=== PATIENT | female | born 1955 | race Caucasian/White ===

== ENCOUNTER 2021-12-05 06:36 | Emergency (ER) | payer OTHER, SELFPAY ==
--- NOTE | ~2021-12-05 | CT_ITS ---
EXAM: Noncontrast CT scan of the head and cervical spine. INDICATION: Headache. Possible fall. EtOH. COMPARISON: None TECHNIQUE: Axial slices were obtained from skull base to vertex and displayed. This was followed by helical, multislice, multidetector axial images from the occiput to the upper thorax. Coronal and sagittal reformats of the cervical spine in addition to coronal reformats of the head were obtained at the technologist workstation. Today's examination is limited secondary to motion artifact. DLP: 296 mGy-cm FINDINGS: HEAD: There is no evidence of acute intracranial hemorrhage or territorial infarction. No abnormal mass effect or midline shift is appreciated. Kathleen-white differentiation is well preserved. No extra-axial fluid collections. The ventricular system and cortical sulci are prominent, consistent with age-appropriate volume loss. Mild cerebellar volume loss is also appreciated. There are areas of low density in the periventricular and subcortical white matter, most consistent with sequelae of microvascular ischemic change. Mild soft tissue fullness centered superior to the right orbit likely represents a tiny hematoma. Clinical correlation recommended. No underlying osseous abnormality. There is mild to moderate calcifications of the cavernous internal carotid arteries. The visualized paranasal sinuses and mastoid air cells are well aerated. SPINE: There is straightening of the normal cervical lordosis. Alignment is otherwise unremarkable. Patient is status post posterior fusion of C1 on C2. There is no evidence of hardware failure. There is evidence of an old C2 fracture. Cervical vertebral body heights are maintained. Moderate narrowing of the C3/C4, C5/C6, C6/C7 and C7/T1 disc space heights. There are prominent osteophytes throughout the mid and lower cervical spine. Diffuse bilateral facet hypertrophy visualized lung apices are well aerated. CT/CT cervical spine wo con IMPRESSION: 1. Mild soft tissue fullness centered superior to the right orbit likely represents a tiny hematoma. Clinical correlation recommended. 2. No acute intracranial pathology. 3. Degenerative and old post traumatic and postsurgical changes of the cervical spine. No CT evidence for acute cervical spine fracture. This CT examination was performed using dose optimization techniques as appropriate, variously including the following: *Automated exposure control *Adjustment of mA and/or kV according to patient size (this includes techniques or standardized protocols for targeted exams where dose is matched to indication/reason for exam; i.e. extremities or head) *Use of iterative reconstruction technique
[2021-12-05 06:42] VITALS: BP 140/80; BP 145/86; PULSE 104; PULSE 99; RESP 16; TEMP 36.8; O2SAT 96; BMI 43.4
--- NOTE | 2021-12-05 06:55 | ED_ITS ---
HPI - Alcohol General Chief Complaint: ETOH/Substance Use Stated Complaint: ETOH/Nauseous Time Seen by Provider: 12/05/21 06:47 Source: patient Mode of arrival: EMS Limitations: other (alcohol intoxication) History of Present Illness HPI narrative: of note patient has given registration 2 different birthday and names at this point so she has different accounts with different birthday years and different addressess complaint: alcohol intoxication (headache) Last drink: Hours (ago) Chronic alcohol use: Yes Previous visits for alcohol intoxication: Yes Recent trauma: No Associated symptoms: other (reports nausea vomiting x 4, headache but cannot state when and reports she did not fall ) Treatments prior to arrival: none Related Data Allergies Allergy/AdvReac Type Severity Reaction Status Date / Time No Known Allergies Allergy Verified 12/05/21 06:51 Review of Systems Verdana 4l Review of Systems: Verdana 4d ROS unable to be obtained Verdana 4d due to poor historian, difficult to follow ETOH abuse. Verdana 4d [facility] Past Medical History Medical History Alcoholism Depression Diabetes HTN (hypertension) Social History Social History (Updated 12/05/21 @ 06:56 by Tri Dale DO) Alcohol intake: current Patient Tobacco Use Status: Current everyday Tobacco user Use of substances other than those prescribed or required for medical reasons: No Advance Directives: No Advance Directives Information Provided: No Physical Exam Verdana 4l Vital Signs: Verdana 4d Verdana 4d Vital Signs: Verdana 4d Verdana 4Bd Last Vital Signs Verdana 4d Assistant Housekeeping Manager New 4d Assistant Housekeeping Manager New 4d Temp 98.2 F 12/05/21 11:05 Assistant Housekeeping Manager New 4d Pulse 95 12/05/21 11:05 Assistant Housekeeping Manager New 4d Resp 18 12/05/21 11:05 BP 121/67 12/05/21 11:05 Pulse Ox 97 12/05/21 11:05 BMI result Body Mass Index 43.4 Appearance: Alert. Oriented X2 ETOH odor, agitated, mild acute distress. Intermittently yelling out. Eyes: Pupils equal, round and reactive to light. ENT: Pharynx normal. Old scar R frontal bone Neck: Normal inspection. Neck supple. CVS: Normal heart rate and rhythm. Pulses normal. Respiratory: No respiratory distress. Breath sounds normal. Abdomen: Soft and nontender. Skin: Skin warm and dry. yellowish skin color. Normal skin turgor. Extremities: No lower extremity edema. No calf ttp Neuro: Oriented X 2. No motor deficit. No sensory deficit. Course Course Course Narrative: no acute findings, hydrated, given magnesium thiamine will observe until more clinically sober then DC home - seen for same under other accounts several times tolerating PO attempting to find ride home eating and drinking in ED - no signs of hypoglycemia. BS 92 MDM - Alcohol MDM Narrative Medical decision making narrative: 66 yo female with hx of DM, HTN, alcohol abuse here with reports of agitation, supposed atraumatic headache of unknown duration, n/v, she has given registration 3 different birthdays at this time. I do not see head trauma but she is a terrible historian and based off old account she has been seen for head injury in the past. At this time labs, CT head/cspine ordered. IVF and zofran, BP stable no neuro deficits. Very difficult to get a history from. Lab Data Result diagrams: 12/05/21 07:28 12/05/21 07:28 Labs: Lab Results 12/05/21 12/05/21 12/05/21 Range/Units 07:06 07:28 07:28 WBC 10.3 (4.8-10.8) X10*3/uL RBC 3.98 L (4.20-5.50) X10*6/uL Hgb 13.6 (12.0-16.0) g/dl Hct 39.2 (37.0-47.0) % MCV 98.5 H (80.0-98.0) fL MCH 34.2 H (27.0-33.0) pg MCHC 34.7 (31.0-35.0) g/dl RDW 13.3 (11.0-16.0) % Plt Count 228 (160-400) X10*3/uL MPV 9.4 (9.4-12.3) fL Immature Gran % (Auto) 0.4 (0.0-0.4) % Neut % (Auto) 77.7 H (45-73) % Lymph % (Auto) 16.1 L (20-40) % Harnett % (Auto) 5.2 (2-11) % Eos % (Auto) 0.3 (0-4) % Baso % (Auto) 0.3 (0-2) % Lymph # (Auto) 1.7 (1.2-4.9) X10*3/uL [place]ett # (Auto) 0.5 (0.1-1.2) X10*3/uL Eos # (Auto) 0.0 (0.0-0.4) X10*3/uL Baso # (Auto) 0.0 (0.0-0.2) X10*3/uL Abs Immat Gran (auto) 0.04 H (0.00-0.03) X10*3/uL Absolute Neuts (auto) 8.0 (2.0-8.3) x10*3/uL Absolute Nucleated RBC 0.000 (0.0-0.012) X10*3/uL Nucleated RBC % (auto) 0.0 (0.0-0.2) /100WBC PT (9.9-13.0) SEC INR (0.9-1.1) Sodium 146 H (135-145) mmol/L Potassium 3.8 (3.3-5.1) mmol/L Chloride 106 (96-108) mmol/L Carbon Dioxide 22 (22-29) mmol/L Anion Gap 22 H (12-20) BUN 9 (9-16) mg/dL Creatinine 0.63 (0.5-1.4) mg/dL Estim Creat Clear Calc 110.8 Estimated GFR > 60 POC Glucose 89 (60-115) mg/dL Random Glucose 92 (60-115) mg/dL Calcium 9.2 (8.4-10.2) mg/dL Magnesium 1.5 L (1.6-2.6) mg/dL Total Bilirubin 0.7 (0.0-1.0) mg/dL Direct Bilirubin 0.4 (0.0-0.5) mg/dL AST 21 (5-31) U/L ALT 13 (0-31) U/L Alkaline Phosphatase 76 (39-117) U/L Ammonia (13-55) umol/L Total Protein 6.8 (6.5-8.0) g/dL Albumin 4.0 (3.5-5.0) g/dL Ethyl Alcohol mg/dL COVID-19 (YEFRI) (Negative) COVID-19 Clin Com 02/04/22 02/04/22 02/04/22 Range/Units 07:28 07:28 07:28 WBC (4.8-10.8) X10*3/uL RBC (4.20-5.50) X10*6/uL Hgb (12.0-16.0) g/dl Hct (37.0-47.0) % MCV (80.0-98.0) fL MCH (27.0-33.0) pg MCHC (31.0-35.0) g/dl RDW (11.0-16.0) % Plt Count (160-400) X10*3/uL MPV (9.4-12.3) fL Immature Gran % (Auto) (0.0-0.4) % Neut % (Auto) (45-73) % Lymph % (Auto) (20-40) % Harnett % (Auto) (2-11) % Eos % (Auto) (0-4) % Baso % (Auto) (0-2) % Lymph # (Auto) (1.2-4.9) X10*3/uL [place]ett # (Auto) (0.1-1.2) X10*3/uL Eos # (Auto) (0.0-0.4) X10*3/uL Baso # (Auto) (0.0-0.2) X10*3/uL Abs Immat Gran (auto) (0.00-0.03) X10*3/uL Absolute Neuts (auto) (2.0-8.3) x10*3/uL Absolute Nucleated RBC (0.0-0.012) X10*3/uL Nucleated RBC % (auto) (0.0-0.2) /100WBC PT 11.4 (9.9-13.0) SEC INR 1.0 (0.9-1.1) Sodium (135-145) mmol/L Potassium (3.3-5.1) mmol/L Chloride (96-108) mmol/L Carbon Dioxide (22-29) mmol/L Anion Gap (12-20) BUN (9-16) mg/dL Creatinine (0.5-1.4) mg/dL Estim Creat Clear Calc Estimated GFR POC Glucose (60-115) mg/dL Random Glucose (60-115) mg/dL Calcium (8.4-10.2) mg/dL Magnesium (1.6-2.6) mg/dL Total Bilirubin (0.0-1.0) mg/dL Direct Bilirubin (0.0-0.5) mg/dL AST (5-31) U/L ALT (0-31) U/L Alkaline Phosphatase (39-117) U/L Ammonia 25 (13-55) umol/L Total Protein (6.5-8.0) g/dL Albumin (3.5-5.0) g/dL Ethyl Alcohol mg/dL COVID-19 ([facility]EFRI) Negative (Negative) COVID-19 Clin Com See Note 12/05/21 Range/Units 07:28 WBC (4.8-10.8) X10*3/uL RBC (4.20-5.50) X10*6/uL Hgb (12.0-16.0) g/dl Hct (37.0-47.0) % MCV (80.0-98.0) fL MCH (27.0-33.0) pg MCHC (31.0-35.0) g/dl RDW (11.0-16.0) % Plt Count (160-400) X10*3/uL MPV (9.4-12.3) fL Immature Gran % (Auto) (0.0-0.4) % Neut % (Auto) (45-73) % Lymph % (Auto) (20-40) % [place] % (Auto) (2-11) % Eos % (Auto) (0-4) % Baso % (Auto) (0-2) % Lymph # (Auto) (1.2-4.9) X10*3/uL [place] # (Auto) (0.1-1.2) X10*3/uL Eos # (Auto) (0.0-0.4) X10*3/uL Baso # (Auto) (0.0-0.2) X10*3/uL Abs Immat Gran (auto) (0.00-0.03) X10*3/uL Absolute Neuts (auto) (2.0-8.3) x10*3/uL Absolute Nucleated RBC (0.0-0.012) X10*3/uL Nucleated RBC % (auto) (0.0-0.2) /100WBC PT (9.9-13.0) SEC INR (0.9-1.1) Sodium (135-145) mmol/L Potassium (3.3-5.1) mmol/L Chloride (96-108) mmol/L Carbon Dioxide (22-29) mmol/L Anion Gap (12-20) BUN (9-16) mg/dL Creatinine (0.5-1.4) mg/dL Estim Creat Clear Calc Estimated GFR POC Glucose (60-115) mg/dL Random Glucose (60-115) mg/dL Calcium (8.4-10.2) mg/dL Magnesium (1.6-2.6) mg/dL Total Bilirubin (0.0-1.0) mg/dL Direct Bilirubin (0.0-0.5) mg/dL AST (5-31) U/L ALT (0-31) U/L Alkaline Phosphatase (39-117) U/L Ammonia (13-55) umol/L Total Protein (6.5-8.0) g/dL Albumin (3.5-5.0) g/dL Ethyl Alcohol 239 mg/dL COVID-19 ([facility]EFRI) (Negative) COVID-19 Clin Com Discharge Plan Discharge Clinical Impression: Hypomagnesemia Alcoholic intoxication Qualifiers: Complication of substance-induced condition: uncomplicated Qualified Code(s): F10.920 - Alcohol use, unspecified with intoxication, uncomplicated Patient Disposition: Home, Self-Care Instructions: Alcohol Intoxication (ED), Hypomagnesemia (ED) Additional Instructions: return to ED for any worsening symptoms or concerns Interventions: ED Discharge Assessment Last Done: 12/05/21 11:50 Discharge Date/Time: 12/05/21 11:56 Print Language: Latvian
[2021-12-05 07:11] LABS: Glucose, Whole Blood 89 mg/dL (60-115)
[2021-12-05 07:31] VITALS: BP 119/71; PULSE 84; RESP 18; O2SAT 96
[2021-12-05 07:33] LABS: MANUAL DIFF FLAG NO
--- NOTE | 2021-12-05 07:34 | PC.NURSE ---
Pt alert. no active vomiting. no sign of head strike, open skin. pt able to state needs. denies blood in emisis. noneuro deficits noted. moist mm, abd soft non tender.
[2021-12-05 07:35] LABS: Basophils Percent Auto 0.3 % (0-2); Eosinophils Percent Auto 0.3 % (0-4); Hematocrit 39.2 % (37.0-47.0); Hemoglobin 13.6 g/dl (12.0-16.0); Imm Gran Abs Auto 0.04 X10*3/uL (0.00-0.03); Imm Gran Pct Auto 0.4 % (0.0-0.4); Lymphocytes Absolute Auto 1.7 X10*3/uL (1.2-4.9); Lymphocytes Percent Auto 16.1 % (20-40); Mean Corpuscular HGB Conc 34.7 g/dl (31.0-35.0); Mean Corpuscular Hemoglobin 34.2 pg (27.0-33.0); Mean Corpuscular Volume 98.5 fL (80.0-98.0); Mean Platelet Volume 9.4 fL (9.4-12.3); Monocytes Absolute Auto 0.5 X10*3/uL (0.1-1.2); Monocytes Percent Auto 5.2 % (2-11); Neutrophils Percent Auto 77.7 % (45-73); Platelet Count 228 X10*3/uL (160-400); Red Blood Count 3.98 X10*6/uL (4.20-5.50); Red Cell Distribution Width 13.3 % (11.0-16.0); White Blood Count 10.3 X10*3/uL (4.8-10.8)
[2021-12-05] MEDS: 0.9 % Sodium Chloride 1,000 ML 999 ML IVCONT (07:39)
[2021-12-05] MEDS: ondansetron HCL 4 MG/2 ML VIAL IVPUSH (07:39)
[2021-12-05] MEDS: Dextrose 50 % 25 GM/50 ML SYRINGE IVPUSH (07:39)
[2021-12-05 07:46] LABS: Prothrombin Time 11.4 SEC (9.9-13.0)
[2021-12-05 07:52] LABS: Ammonia 25 umol/L (13-55)
[2021-12-05 07:53] LABS: COVID-19 Test Negative (Negative); IDNOW Serial# 9DD0AD1C
[2021-12-05 07:56] LABS: Ethanol 239 mg/dL
[2021-12-05 08:04] LABS: Alanine Aminotransferase 13 U/L (0-31); Alkaline Phosphatase 76 U/L (39-117); Anion Gap 22 (12-20); Aspartate Amino Transferase 21 U/L (5-31); Bilirubin Direct 0.4 mg/dL (0.0-0.5); Bilirubin Total 0.7 mg/dL (0.0-1.0); Blood Urea Nitrogen 9 mg/dL (9-16); Calcium 9.2 mg/dL (8.4-10.2); Carbon Dioxide 22 mmol/L (22-29); Chloride 106 mmol/L (96-108); Creatinine Clr Calc Pharmacy 110.8; Estimated Glomerular Filt Rate > 60; Glucose Random 92 mg/dL (60-115); Magnesium 1.5 mg/dL (1.6-2.6); Potassium 3.8 mmol/L (3.3-5.1); Sodium 146 mmol/L (135-145); Total Protein 6.8 g/dL (6.5-8.0)
[2021-12-05] MEDS: Magnesium Sulfate/H2O 2 GM/50 ML PIGGYBACK IV (09:27)
[2021-12-05] MEDS: Thiamine HCL 100 MG in 0.9 % Sodium Chloride 100 ML 202 MG IV (09:29)
[2021-12-05 11:05] VITALS: BP 121/67; PULSE 95; RESP 18; TEMP 36.8; O2SAT 97
== END 2021-12-05 11:56 | disposition home or self-care (01) ==
PROVIDERS: Emergency Provider Emergency Medicine
DX: F10.220 Alcohol dependence with intoxication, uncomplicated (principal); Y90.7 Blood alcohol level of 200-239 mg/100 ml; E83.42 Hypomagnesemia; R51.9 Headache, unspecified; R45.1 Restlessness and agitation; Z20.822 Contact with and (suspected) exposure to COVID-19; E11.9 Type 2 diabetes mellitus without complications; I10 Essential (primary) hypertension; F17.200 Nicotine dependence, unspecified, uncomplicated
CPT/HCPCS: 36415; 70450; 72125; 80048; 80076; 82077; 82140; 82947; 83735; 85025; 85610; 87635; 96361; 96365; 96366; 96375; 99284; 99285; J2405; J3411; J3475

== ENCOUNTER 2022-03-20 00:28 | Emergency (ER) | payer OTHER, SELFPAY ==
[2022-03-20] VITALS (7 sets, daily range): BP systolic 90–134; BP diastolic 52–79; PULSE 80–104; RESP 14–19; TEMP 36.4–36.9; O2SAT 94–99; BMI 22.8
--- NOTE | ~2022-03-20 | CT_ITS ---
EXAMINATION: CT ABDOMEN AND PELVIS WITHOUT CONTRAST CLINICAL INFORMATION: Flank pain. History of kidney stone. COMPARISON: None TECHNIQUE: Multidetector volumetric imaging was performed from the superior aspect of the liver through the pubic symphysis. Sagittal and coronal reformatted images were obtained on the technologist's workstation. This CT examination was performed using dose optimization techniques as appropriate, variously including the following: *Automated exposure control *Adjustment of mA and/or kV according to patient size (this includes techniques or standardized protocols for targeted exams where dose is matched to indication/reason for exam; i.e. extremities or head) *Use of iterative reconstruction technique DLP: 375 mGy-cm FINDINGS: LUNG BASES: The visualized lung bases are unremarkable. LIVER, GALLBLADDER, AND BILIARY TREE: The liver is normal in size and shape with decreased attenuation. No focal hepatic lesion or biliary ductal dilatation is present. The gallbladder is unremarkable with no evidence of radiopaque gallstones, gallbladder wall thickening, or obvious pericholecystic inflammatory changes. PANCREAS: Unremarkable. SPLEEN: Unremarkable. ADRENAL GLANDS: Unremarkable. KIDNEYS AND URETERS: The kidneys are normal in size, shape, and attenuation. No hydronephrosis, hydroureter, or calculi seen. No perinephric stranding. There are calcifications which are seen in the pelvis, likely representing phleboliths. These are not definitively along the course of either ureter. BLADDER: Unremarkable. GASTROINTESTINAL TRACT: The stomach is unremarkable. Normal caliber small bowel. No obstruction. No colonic wall thickening or acute inflammation. No free air or free fluid. ABDOMINAL WALL: No significant hernia is appreciated. LYMPH NODES: Normal. VASCULAR: Normal caliber aorta with mild atherosclerotic calcification. PELVIC VISCERA: The uterus and adnexa are unremarkable. OSSEOUS STRUCTURES: No acute or suspicious osseous abnormality. Mild degenerative change throughout the spine. CT/CT abdomen pelvis wo con IMPRESSION: Hepatic steatosis. No hydronephrosis or hydroureter. No definite ureteral calculi, with multiple probable phleboliths in the pelvis. Fleischner guidelines were followed.
--- NOTE | 2022-03-20 01:09 | ED_ITS ---
HPI - General Adult General Chief complaint: Back Pain/Injury Stated complaint: KIDNEY STONES/DIZZINESS Time Seen by Provider: 03/20/22 01:07 Source: patient, EMS and motor vehicle parts interpreter Mode of arrival: EMS Limitations: no limitations History of Present Illness HPI narrative: 66-year-old female came in by ambulance for evaluation of multiple complaints. 1. Right flank pain that started 1 day ago mostly in the right flank pain that is constant, described as severe 10/10, increased with movement, no nausea or vomiting or fever, no dysuria or frequency urination. Patient declined any recent trauma to her back or falling down. 2. Patient also complaining of diabetes. Patient states she is compliant with her medication. 3. Patient with history of depression feeling depressed today patient declined SI or HI or hallucination. 4. Patient also complaining of asthma exacerbation. Related Data Allergies Allergy/AdvReac Type Severity Reaction Status Date / Time No Known Allergies Allergy Verified 12/05/21 06:51 Review of Systems Review of Systems: All other systems are reviewed and are negative Constitutional: Reports as per HPI and Reports no additional constitutional complaints Eyes: Reports as per HPI and Reports no additional eye complaints Reports system reviewed and no additional complaints, except as documented Cardiovascular: Reports as per HPI and Reports no additional cardiovascular complaints Respiratory: Reports as per HPI and Reports no additional respiratory complaints Gastrointestinal: Reports as per HPI and Reports no additional gastrointestinal complaints Genitourinary: Reports no additional female genitourinary complaints Musculoskeletal: Reports no additional musculoskeletal complaints Skin/Breast: Reports system reviewed and no additional complaints, except as docu Psychiatric: Reports no additional psychiatric complaints Endocrine: Reports no additional endocrine complaints Hematologic/Lymphatic: Reports no additional hematologic/lymphatic complaints Allergic/Immunologic: Reports no additional allergic/immunologic complaints Reports system reviewed and no additional complaints, except as documented and Reports Abnormal speech present [facility] Past Medical History Medical History Alcoholism Depression Diabetes HTN (hypertension) Social History Social History Alcohol intake: current Patient Tobacco Use Status: Current everyday Tobacco user Advance Directives: No Physical Exam ED Vital Signs: Vital Signs - 24 hr 03/20/22 00:35 03/20/22 02:58 03/20/22 04:30 Temperature 97.6 F Pulse Rate 94 84 87 Respiratory Rate 16 14 14 Blood Pressure 93/53 L 112/60 90/52 L Pulse Oximetry 97 95 96 03/20/22 06:08 Temperature Pulse Rate 83 Respiratory Rate 14 Blood Pressure 108/59 L Pulse Oximetry 94 BMI result Body Mass Index 22.8 Vital signs have been reviewed as appeared to be correct. Blood pressure normal. Heart rate normal. Respiration rate normal. Temperature normal. Oxygen saturation normal. Appearance: Alert. Oriented X3. No acute distress. Head: Normal external exam. Normocephalic. Atraumatic. No Magana signs noted. No raccoon eyes noted Eyes: PERRLA. EOMI. Conjunctiva and sclera normal. Eyelids normal. ENT: TM's Normal. Pharynx normal. Uvula midline. Moist mucous membranes. No trismus noted. No drooling noted. No muffled voice noted. Neck: Normal inspection. Neck supple. FROM. No adenopathy. Thyroid Normal. No me ningeal signs. No neck mass noted. CVS: Normal heart rate and rhythm. Heart sound normal. No murmurs noted. Pulses normal throughout. Respiratory: No respiratory distress. Painless inspiration. Breath sounds normal. No wheezes/rales/rhonchi noted. Chest nontender. No accessory muscle usage noted or decreased air movement noted. Abdomen: Soft and nontender. Bowel sounds normal in all 4 quadrants. No distention noted. No organomegaly noted. No visible injury noted. Back: No CVA tenderness. Full range of motion noted. Skin: Skin warm and dry. Normal skin color. Normal skin turgor. No ra shes/lesions/lacerations noted. Extremities: No lower extremity edema. Extremities exhibit normal range of motion. Extremities nontender. Neuro: Oriented X 3. Cranial nerve exam: II-XII are grossly intact No motor deficit. No sensory deficit. Reflexes normal. Course Course Course Narrative: Assessment and plan. 66-year-old female came in with multiple complaints, patient has unremarkable CT of the abdomen pelvis and unremarkable labs, patient's blood pressure noted to be on the low side but given patient's small size and being asymptomatic with no obvious reason of patient's blood pressure numbers. Patient is eating and drinking the emergency department. Patient is requesting BHN in evaluation for depression. Observation in the ED started at 06:00 a.m. patient weaning for BHN evaluation. Medical Decision Making Lab Data Lab results reviewed: Yes I reviewed the patient's lab results. Result diagrams: 03/20/22 02:04 03/20/22 02:04 Labs: Lab Results 03/20/22 03/20/22 03/20/22 Range/Units 01:16 02:04 02:04 WBC 4.5 L (4.8-10.8) X10*3/uL RBC 3.75 L (4.20-5.50) X10*6/uL Hgb 12.9 (12.0-16.0) g/dl Hct 37.1 (37.0-47.0) % MCV 98.9 H (80.0-98.0) fL MCH 34.4 H (27.0-33.0) pg MCHC 34.8 (31.0-35.0) g/dl RDW 12.3 (11.0-16.0) % Plt Count 128 L D (160-400) X10*3/uL MPV 9.3 L (9.4-12.3) fL Immature Gran % (Auto) 0.2 (0.0-0.4) % Neut % (Auto) 33.2 L (45-73) % Lymph % (Auto) 53.6 H (20-40) % Hardy % (Auto) 10.1 (2-11) % Eos % (Auto) 2.2 (0-4) % Baso % (Auto) 0.7 (0-2) % Lymph # (Auto) 2.4 (1.2-4.9) X10*3/uL Hardy # (Auto) 0.5 (0.1-1.2) X10*3/uL Eos # (Auto) 0.1 (0.0-0.4) X10*3/uL Baso # (Auto) 0.0 (0.0-0.2) X10*3/uL Abs Immat Gran (auto) 0.01 (0.00-0.03) X10*3/uL Absolute Neuts (auto) 1.5 L (2.0-8.3) x10*3/uL Absolute Nucleated RBC 0.000 (0.0-0.012) X10*3/uL Nucleated RBC % (auto) 0.0 (0.0-0.2) /100WBC Sodium 140 (135-145) mmol/L Potassium 3.3 (3.3-5.1) mmol/L Chloride 108 (96-108) mmol/L Carbon Dioxide 21 L (22-29) mmol/L Anion Gap 14 (12-20) BUN 10 (9-16) mg/dL Creatinine 0.59 (0.5-1.4) mg/dL Estim Creat Clear Calc 68.3 Estimated GFR > 60 Random Glucose 140 H (60-115) mg/dL Calcium 8.7 (8.4-10.2) mg/dL Total Bilirubin 0.3 (0.0-1.0) mg/dL Direct Bilirubin 0.2 (0.0-0.5) mg/dL AST 91 H (5-31) U/L ALT 40 H (0-31) U/L Alkaline Phosphatase 95 D (39-117) U/L Total Protein 6.4 L (6.5-8.0) g/dL Albumin 3.8 (3.5-5.0) g/dL Lipase 32 (8-78) U/L Urine Color YELLOW Urine Appearance CLEAR Urine pH 5.5 (5.0-8.0) Ur Specific [place] <= 1.005 (1.005-1.025) Urine Protein NEG (NEG-TRACE) MG/DL Urine Glucose (UA) NEG (NEG) MG/DL Urine Ketones NEG (NEG) MG/DL Urine Blood TRACE (NEG) Urine Nitrite NEG (NEG) Ur Leukocyte Esterase NEG (NEG) Urine RBC 0-2 (0) /HPF Urine WBC 0-2 (0-4) /HPF Ur Squamous Epith Cells 2+ /LPF Calcium Oxalate Crystal TRACE /LPF Urine Bacteria TRACE /LPF Urine Mucus TRACE /LPF 03/20/22 Range/Units 04:31 WBC (4.8-10.8) X10*3/uL RBC (4.20-5.50) X10*6/uL Hgb (12.0-16.0) g/dl Hct (37.0-47.0) % MCV (80.0-98.0) fL MCH (27.0-33.0) pg MCHC (31.0-35.0) g/dl RDW (11.0-16.0) % Plt Count (160-400) X10*3/uL MPV (9.4-12.3) fL Immature Gran % (Auto) (0.0-0.4) % Neut % (Auto) (45-73) % Lymph % (Auto) (20-40) % Hardy % (Auto) (2-11) % Eos % (Auto) (0-4) % Baso % (Auto) (0-2) % Lymph # (Auto) (1.2-4.9) X10*3/uL Hardy # (Auto) (0.1-1.2) X10*3/uL Eos # (Auto) (0.0-0.4) X10*3/uL Baso # (Auto) (0.0-0.2) X10*3/uL Abs Immat Gran (auto) (0.00-0.03) X10*3/uL Absolute Neuts (auto) (2.0-8.3) x10*3/uL Absolute Nucleated RBC (0.0-0.012) X10*3/uL Nucleated RBC % (auto) (0.0-0.2) /100WBC Sodium (135-145) mmol/L Potassium (3.3-5.1) mmol/L Chloride (96-108) mmol/L Carbon Dioxide (22-29) mmol/L Anion Gap (12-20) BUN (9-16) mg/dL Creatinine (0.5-1.4) mg/dL Estim Creat Clear Calc Estimated GFR Random Glucose (60-115) mg/dL Calcium (8.4-10.2) mg/dL Total Bilirubin (0.0-1.0) mg/dL Direct Bilirubin (0.0-0.5) mg/dL AST (5-31) U/L ALT (0-31) U/L Alkaline Phosphatase (39-117) U/L Total Protein (6.5-8.0) g/dL Albumin (3.5-5.0) g/dL Lipase (8-78) U/L Urine Color STRAW Urine Appearance CLEAR Urine pH 5.5 (5.0-8.0) Ur Specific [place] <= 1.005 (1.005-1.025) Urine Protein NEG (NEG-TRACE) MG/DL Urine Glucose (UA) NEG (NEG) MG/DL Urine Ketones NEG (NEG) MG/DL Urine Blood TRACE (NEG) Urine Nitrite NEG (NEG) Ur Leukocyte Esterase NEG (NEG) Urine RBC 0 (0) /HPF Urine WBC 0-2 (0-4) /HPF Ur Squamous Epith Cells 1+ /LPF Calcium Oxalate Crystal /LPF Urine Bacteria TRACE /LPF Urine Mucus /LPF Imaging Data CT scan - abdomen: Attestation: I personally reviewed and interpreted this imaging study as follows: Radiologist's impression: Hepatic steatosis. No hydronephrosis or hydroureter. No definite ureteral calculi, with multiple probable phleboliths in the pelvis.? ? Discharge Plan Discharge Clinical Impression: Strain of lumbar region, Depression
[2022-03-20 01:27] LABS: Appearance Urine CLEAR; Color Urine YELLOW; Glucose Urine UA NEG (NEG); Leukocyte Esterase Urine NEG (NEG); Nitrite Urine NEG (NEG); PH 5.5 (5.0-8.0); Specific Gravity - Urine <= 1.005 (1.005-1.025); UACC Culture Trigger NO; Urine Blood TRACE (NEG); Urine Ketones NEG (NEG); Urine Protein NEG (NEG-TRACE)
[2022-03-20 01:44] LABS: Bacteria Urine TRACE /LPF; Calcium Oxalate Crystals Urine TRACE /LPF; Mucus Urine TRACE /LPF; RBC Urine 0-2 /HPF (0); Squamous Epithelial Cell Urine 2+ /LPF; WBC Urine 0-2 /HPF (0-4)
[2022-03-20 02:08] LABS: MANUAL DIFF FLAG NO
[2022-03-20 02:09] LABS: Basophils Percent Auto 0.7 % (0-2); Eosinophils Absolute Auto 0.1 X10*3/uL (0.0-0.4); Eosinophils Percent Auto 2.2 % (0-4); Hematocrit 37.1 % (37.0-47.0); Hemoglobin 12.9 g/dl (12.0-16.0); Imm Gran Abs Auto 0.01 X10*3/uL (0.00-0.03); Imm Gran Pct Auto 0.2 % (0.0-0.4); Lymphocytes Absolute Auto 2.4 X10*3/uL (1.2-4.9); Lymphocytes Percent Auto 53.6 % (20-40); Mean Corpuscular HGB Conc 34.8 g/dl (31.0-35.0); Mean Corpuscular Hemoglobin 34.4 pg (27.0-33.0); Mean Corpuscular Volume 98.9 fL (80.0-98.0); Mean Platelet Volume 9.3 fL (9.4-12.3); Monocytes Absolute Auto 0.5 X10*3/uL (0.1-1.2); Monocytes Percent Auto 10.1 % (2-11); Neutrophils Absolute Auto 1.5 x10*3/uL (2.0-8.3); Neutrophils Percent Auto 33.2 % (45-73); Platelet Count 128 X10*3/uL (160-400); Red Blood Count 3.75 X10*6/uL (4.20-5.50); Red Cell Distribution Width 12.3 % (11.0-16.0); White Blood Count 4.5 X10*3/uL (4.8-10.8)
[2022-03-20 02:25] LABS: Alanine Aminotransferase 40 U/L (0-31); Albumin Level 3.8 g/dL (3.5-5.0); Alkaline Phosphatase 95 U/L (39-117); Anion Gap 14 (12-20); Aspartate Amino Transferase 91 U/L (5-31); Bilirubin Direct 0.2 mg/dL (0.0-0.5); Bilirubin Total 0.3 mg/dL (0.0-1.0); Blood Urea Nitrogen 10 mg/dL (9-16); Calcium 8.7 mg/dL (8.4-10.2); Carbon Dioxide 21 mmol/L (22-29); Chloride 108 mmol/L (96-108); Creatinine Clr Calc Pharmacy 68.3; Estimated Glomerular Filt Rate > 60; Glucose Random 140 mg/dL (60-115); Lipase 32 U/L (8-78); Potassium 3.3 mmol/L (3.3-5.1); Sodium 140 mmol/L (135-145); Total Protein 6.4 g/dL (6.5-8.0)
--- NOTE | 2022-03-20 02:25 | PC.NURSE ---
Difficulty getting IV acces after multiple attempts, Pt refusing IV and fluids at this time.
[2022-03-20] MEDS: 0.9 % Sodium Chloride 1,000 ML 999 ML IV (03:53)
[2022-03-20 04:39] LABS: Appearance Urine CLEAR; Color Urine STRAW; Glucose Urine UA NEG (NEG); Leukocyte Esterase Urine NEG (NEG); Nitrite Urine NEG (NEG); PH 5.5 (5.0-8.0); Specific Gravity - Urine <= 1.005 (1.005-1.025); UACC Culture Trigger NO; Urine Blood TRACE (NEG); Urine Ketones NEG (NEG); Urine Protein NEG (NEG-TRACE)
[2022-03-20 05:03] LABS: Bacteria Urine TRACE /LPF; RBC Urine 0 /HPF (0); Squamous Epithelial Cell Urine 1+ /LPF; WBC Urine 0-2 /HPF (0-4)
[2022-03-20] MEDS: ondansetron HCL 4 MG/2 ML VIAL IVPUSH (10:55)
[2022-03-20] MEDS: Ketorolac Tromethamine 30 MG/ML VIAL IVPUSH (10:55)
[2022-03-20 10:56] LABS: Glucose, Whole Blood 97 mg/dL (60-115)
[2022-03-20 14:19] LABS: Glucose, Whole Blood 180 mg/dL (60-115)
--- NOTE | 2022-03-20 16:04 | PC.NURSE ---
patient requesting to leave at this time. patient tolerating PO intake and in no distress. patient declines waiting to speak with BHN. alert and oriented on departure, provided bus pass
== END 2022-03-20 20:35 | disposition left against medical advice (07) ==
PROVIDERS: Emergency Provider Emergency Medicine
DX: S39.012A Strain of muscle, fascia and tendon of lower back, initial encounter (principal); F32.A Depression, unspecified; R10.9 Unspecified abdominal pain; E11.9 Type 2 diabetes mellitus without complications; I10 Essential (primary) hypertension; X58.XXXA Exposure to other specified factors, initial encounter; Y93.9 Activity, unspecified; Y92.9 Unspecified place or not applicable; Y99.9 Unspecified external cause status
CPT/HCPCS: 36415; 74176; 80048; 80076; 81001; 82947; 83690; 85025; 96361; 96374; 96375; 99284; J1885; J2405

== ENCOUNTER 2022-06-04 21:36 | Emergency (ER) | payer OTHER, SELFPAY ==
--- NOTE | ~2022-06-04 | XR_ITS ---
EXAMINATION: XR CHEST CLINICAL INFORMATION: Chest pain COMPARISON: None TECHNIQUE: Frontal view of the chest was obtained. FINDINGS: The lungs are expanded with patchy opacity seen in the both lung bases. Heart size and pulmonary vascularity is normal. No gross bony abnormality seen. XR/XR chest 1V IMPRESSION: Bilateral basilar patchy opacity likely infiltrate and/or atelectasis. The heart size and pulmonary vascularity is normal. There is moderate dextroscoliosis dorsal spine. .
[2022-06-04 21:50] VITALS: PULSE 102; O2SAT 95
[2022-06-04 21:59] LABS: Glucose, Whole Blood 129 mg/dL (60-115)
[2022-06-04 22:13] VITALS: BP 107/62; PULSE 94; RESP 18; TEMP 36.6; O2SAT 94; BMI 21.0
[2022-06-04 22:17] VITALS: O2SAT 95
--- NOTE | 2022-06-04 22:19 | ED.GENADULT ---
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 On discussed with the patient she states that she drank a number of beers today and that she began having chest tightness with difficulty breathing and then developed nausea and vomiting as well as diarrhea. She denies any urinary symptoms, she states she is having some chills but is unsure about any fevers. Related Data Allergies Allergy/AdvReac Type Severity Reaction Status Date / Time No Known Allergies Allergy Verified 12/05/21 06:51 Review of Systems Review of Systems: Pertinent positives and negatives as stated in HPI 10 point review of systems is otherwise negative. [facility]LY [facility] Past Medical History Source: nursing notes reviewed Medical History Alcoholism Depression Diabetes HTN (hypertension) Social History Social History Alcohol intake: current Patient Tobacco Use Status: Current everyday Tobacco user Use of substances other than those prescribed or required for medical reasons: Unknown Advance Directives: No Advance Directives Information Provided: Yes Physical Exam ED Vital Signs: Vital Signs - 24 hr 06/04/22 22:13 06/04/22 22:17 06/05/22 00:00 Temperature 97.8 F Pulse Rate 94 83 Respiratory Rate 18 17 Blood Pressure 107/62 109/66 Pulse Oximetry 94 95 96 Oxygen Delivery Method Room Air Room Air Room Air BMI result Body Mass Index 21.0 VITAL SIGNS: Reviewed. GENERAL: Older, cachectic, in no acute distress. HEAD: Normocephalic/atraumatic EYES: PERRLA, EOMI EARS: Ext canals without abnormality OROPHARYNX: no oral lesions noted, posterior pharynx clear LUNGS: Normal breath sounds. No adventitious sounds or accessory muscle use. SpO2<94> CARDIOVASCULAR: Regular rate and rhythm without noted murmurs, no JVD or lower extremity edema. ABDOMEN: Soft, non-tender, non-distended with bowel sounds. MUSCULOSKELETAL: No tenderness, deformities, or effusions noted on gross inspection. EXTREMITIES: No cyanosis, clubbing or edema. SKIN: Inspection of the skin reveals no rashes NEUROLOGIC: Alert and oriented x 3. Strength and sensation to light touch were grossly intact x 4. Course Course Course Narrative: 66-year-old female with history and clinical presentation consistent with alcohol intoxication and suspect possible alcohol gastritis but will evaluate for cardiopulmonary etiologies though lungs were auscultated and found to be clear. Review of all investigations with identified alcohol intoxication as well as bilateral patchy infiltrates for which patient received initial antibiotics. On re-evaluation patient has had no further nausea or vomiting episodes and this is likely secondary to the alcohol use as well. She will be discharged in stable condition with the remaining course of antibiotics. Medical Decision Making Lab Data Result diagrams: 06/04/22 22:31 06/04/22 22:31 Labs: Lab Results 06/04/22 06/04/22 06/04/22 Range/Units 21:55 22:31 22:31 WBC 4.7 L (4.8-10.8) X10*3/uL RBC 3.34 L (4.20-5.50) X10*6/uL Hgb 12.2 (12.0-16.0) g/dl Hct 34.9 L (37.0-47.0) % MCV 104.5 H (80.0-98.0) fL MCH 36.5 H (27.0-33.0) pg MCHC 35.0 (31.0-35.0) g/dl RDW 12.4 (11.0-16.0) % Plt Count 173 D (160-400) X10*3/uL MPV 9.4 (9.4-12.3) fL Immature Gran % (Auto) 0.2 (0.0-0.4) % Neut % (Auto) 48.7 (45-73) % Lymph % (Auto) 38.7 (20-40) % [place] % (Auto) 9.2 (2-11) % Eos % (Auto) 2.1 (0-4) % Baso % (Auto) 1.1 (0-2) % Lymph # (Auto) 1.8 (1.2-4.9) X10*3/uL [place] # (Auto) 0.4 (0.1-1.2) X10*3/uL Eos # (Auto) 0.1 (0.0-0.4) X10*3/uL Baso # (Auto) 0.1 (0.0-0.2) X10*3/uL Abs Immat Gran (auto) 0.01 (0.00-0.03) X10*3/uL Absolute Neuts (auto) 2.3 (2.0-8.3) x10*3/uL Absolute Nucleated RBC 0.000 (0.0-0.012) X10*3/uL Nucleated RBC % (auto) 0.0 (0.0-0.2) /100WBC Sodium 142 (135-145) mmol/L Potassium 3.4 (3.3-5.1) mmol/L Chloride 108 (96-108) mmol/L Carbon Dioxide 21 L (22-29) mmol/L Anion Gap 16 (12-20) BUN 14 (9-16) mg/dL Creatinine 0.67 (0.5-1.4) mg/dL Estim Creat Clear Calc 66.1 Estimated GFR > 60 POC Glucose 129 H (60-115) mg/dL Random Glucose 118 H (60-115) mg/dL Calcium 9.2 (8.4-10.2) mg/dL Total Bilirubin 0.4 (0.0-1.0) mg/dL AST 107 H (5-31) U/L ALT 37 H (0-31) U/L Alkaline Phosphatase 92 (39-117) U/L Troponin I High Sens (<3.5-17.0) ng/L Total Protein 6.5 (6.5-8.0) g/dL Albumin 3.8 (3.5-5.0) g/dL Lipase 28 (8-78) U/L Ethyl Alcohol 263 mg/dL COVID-19 (YEFRI) (Negative) COVID-19 Clin Com 06/04/22 06/05/22 Range/Units 22:31 00:04 WBC (4.8-10.8) X10*3/uL RBC (4.20-5.50) X10*6/uL Hgb (12.0-16.0) g/dl Hct (37.0-47.0) % MCV (80.0-98.0) fL MCH (27.0-33.0) pg MCHC (31.0-35.0) g/dl RDW (11.0-16.0) % Plt Count (160-400) X10*3/uL MPV (9.4-12.3) fL Immature Gran % (Auto) (0.0-0.4) % Neut % (Auto) (45-73) % Lymph % (Auto) (20-40) % [place] % (Auto) (2-11) % Eos % (Auto) (0-4) % Baso % (Auto) (0-2) % Lymph # (Auto) (1.2-4.9) X10*3/uL [place] # (Auto) (0.1-1.2) X10*3/uL Eos # (Auto) (0.0-0.4) X10*3/uL Baso # (Auto) (0.0-0.2) X10*3/uL Abs Immat Gran (auto) (0.00-0.03) X10*3/uL Absolute Neuts (auto) (2.0-8.3) x10*3/uL Absolute Nucleated RBC (0.0-0.012) X10*3/uL Nucleated RBC % (auto) (0.0-0.2) /100WBC Sodium (135-145) mmol/L Potassium (3.3-5.1) mmol/L Chloride (96-108) mmol/L Carbon Dioxide (22-29) mmol/L Anion Gap (12-20) BUN (9-16) mg/dL Creatinine (0.5-1.4) mg/dL Estim Creat Clear Calc Estimated GFR POC Glucose (60-115) mg/dL Random Glucose (60-115) mg/dL Calcium (8.4-10.2) mg/dL Total Bilirubin (0.0-1.0) mg/dL AST (5-31) U/L ALT (0-31) U/L Alkaline Phosphatase (39-117) U/L Troponin I High Sens < 3.5 (<3.5-17.0) ng/L Total Protein (6.5-8.0) g/dL Albumin (3.5-5.0) g/dL Lipase (8-78) U/L Ethyl Alcohol mg/dL COVID-19 (YEFRI) Negative (Negative) COVID-19 Clin Com See Note Discharge Plan Discharge Clinical Impression: Pneumonia, Alcohol intoxication, Alcohol dependence Patient Disposition: Still a Patient Additional Instructions: 1. Complete the entire course of antibiotics as ordered. 2. Follow-up with your primary care provider for re-evaluation in the next 1-2 days. Return to the ER for worsening symptoms.
[2022-06-04 22:35] LABS: MANUAL DIFF FLAG NO
[2022-06-04 22:37] LABS: Basophils Absolute Auto 0.1 X10*3/uL (0.0-0.2); Basophils Percent Auto 1.1 % (0-2); Eosinophils Absolute Auto 0.1 X10*3/uL (0.0-0.4); Eosinophils Percent Auto 2.1 % (0-4); Hematocrit 34.9 % (37.0-47.0); Hemoglobin 12.2 g/dl (12.0-16.0); Imm Gran Abs Auto 0.01 X10*3/uL (0.00-0.03); Imm Gran Pct Auto 0.2 % (0.0-0.4); Lymphocytes Absolute Auto 1.8 X10*3/uL (1.2-4.9); Lymphocytes Percent Auto 38.7 % (20-40); Mean Corpuscular Hemoglobin 36.5 pg (27.0-33.0); Mean Corpuscular Volume 104.5 fL (80.0-98.0); Mean Platelet Volume 9.4 fL (9.4-12.3); Monocytes Absolute Auto 0.4 X10*3/uL (0.1-1.2); Monocytes Percent Auto 9.2 % (2-11); Neutrophils Absolute Auto 2.3 x10*3/uL (2.0-8.3); Neutrophils Percent Auto 48.7 % (45-73); Platelet Count 173 X10*3/uL (160-400); Red Blood Count 3.34 X10*6/uL (4.20-5.50); Red Cell Distribution Width 12.4 % (11.0-16.0); White Blood Count 4.7 X10*3/uL (4.8-10.8)
[2022-06-04] MEDS: 0.9 % Sodium Chloride 1,000 ML 999 ML IV (22:49)
[2022-06-04 22:53] LABS: Alanine Aminotransferase 37 U/L (0-31); Albumin Level 3.8 g/dL (3.5-5.0); Alkaline Phosphatase 92 U/L (39-117); Anion Gap 16 (12-20); Aspartate Amino Transferase 107 U/L (5-31); Bilirubin Total 0.4 mg/dL (0.0-1.0); Blood Urea Nitrogen 14 mg/dL (9-16); Calcium 9.2 mg/dL (8.4-10.2); Carbon Dioxide 21 mmol/L (22-29); Chloride 108 mmol/L (96-108); Creatinine Clr Calc Pharmacy 66.1; Estimated Glomerular Filt Rate > 60; Glucose Random 118 mg/dL (60-115); Lipase 28 U/L (8-78); Potassium 3.4 mmol/L (3.3-5.1); Sodium 142 mmol/L (135-145); Total Protein 6.5 g/dL (6.5-8.0)
[2022-06-04 22:56] LABS: Troponin-I High Sensitivity < 3.5 ng/L (<3.5-17.0)
[2022-06-04 23:16] LABS: Ethanol 263 mg/dL
[2022-06-05] VITALS: BP 109/66; PULSE 83; RESP 17; O2SAT 96
[2022-06-05 00:24] LABS: COVID-19 Test Negative (Negative)
[2022-06-05] MEDS: Magnesium Hydrox/Alum Hydrox 30 ML ORAL.SUSP PO (01:41)
[2022-06-05] MEDS: Lidocaine HCl Viscous 2 % 15 ML SOLUTION 10 ML MUCOUS MEM (01:41)
[2022-06-05] MEDS: 0.9 % Sodium Chloride 1,000 ML 999 ML IV (01:44)
[2022-06-05 02:20] VITALS: BP 116/69; PULSE 86; RESP 17; O2SAT 97
[2022-06-05 03:44] LABS: Appearance Urine CLEAR; Color Urine STRAW; Glucose Urine UA NEG (NEG); Leukocyte Esterase Urine NEG (NEG); Nitrite Urine NEG (NEG); Specific Gravity - Urine <= 1.005 (1.005-1.025); UACC Culture Trigger NO; Urine Blood TRACE (NEG); Urine Ketones NEG (NEG); Urine Protein NEG (NEG-TRACE)
[2022-06-05 03:53] LABS: RBC Urine 0-2 /HPF (0); Squamous Epithelial Cell Urine 1+ /LPF; WBC Urine 0 /HPF (0-4)
[2022-06-05 04:10] VITALS: BP 128/84; PULSE 80; RESP 18; O2SAT 96
--- NOTE | 2022-06-05 04:42 | PC.NURSE ---
pt sleeping comfortably on stretcher. no respiratory distress. respirations even and unlabored. call obrien within reach. will continue to monitor
== END 2022-06-05 07:01 | disposition still patient (30) ==
PROVIDERS: Student in an Organized Health Care Education/Training Program; Emergency Provider Emergency Medicine Emergency Medical Services
DX: J18.9 Pneumonia, unspecified organism (principal); F10.220 Alcohol dependence with intoxication, uncomplicated; Y90.8 Blood alcohol level of 240 mg/100 ml or more; Z20.822 Contact with and (suspected) exposure to COVID-19; E11.9 Type 2 diabetes mellitus without complications; I10 Essential (primary) hypertension; F17.200 Nicotine dependence, unspecified, uncomplicated
CPT/HCPCS: 36415; 71045; 80053; 81001; 82077; 82947; 83690; 84484; 85025; 87635; 96360; 96361; 99284

== ENCOUNTER 2022-12-18 01:24 | Emergency (ER) | payer MEDICARE, MEDICAID, SELFPAY ==
--- NOTE | ~2022-12-18 | XR_ITS ---
EXAMINATION: XR CHEST CLINICAL INFORMATION: Dyspnea COMPARISON: 06/04/2022 TECHNIQUE: Frontal view of the chest was obtained. FINDINGS: Cardiac leads overlie the chest. The lungs are well expanded. There is no focal consolidation, edema, or effusion. No pneumothorax. The cardiomediastinal silhouette is within normal limits. No acute osseous abnormality. Chronic deformity of the proximal right humerus. XR/XR chest 1V IMPRESSION: No acute pulmonary disease.
[2022-12-18 01:27] VITALS: BP 116/78; PULSE 110
--- NOTE | 2022-12-18 01:31 | ED.SOB ---
HPI - SOB/Dyspnea General Chief Complaint: Dyspnea Stated Complaint: SOB Time Seen by Provider: 12/18/22 01:27 Source: patient Mode of arrival: EMS Limitations: no limitations History of Present Illness HPI Narrative: Patient history of asthma been drinking tonight comes here for increased cough wheezing nausea vomiting vomited about 5 times with bilateral rib pain with increased bleeding patient feels very anxious Related Data Previous Rx's Medication Instructions Recorded albuterol sulfate 90 mcg/actuation 2 puff inhalation Q4-6H PRN 12/18/22 aerosol inhaler (ProAir HFA) shortness of breath or wheezing #8.5 grams prednisone 20 mg tablet 40 mg PO DAILY #10 tabs 12/18/22 Allergies Allergy/AdvReac Type Severity Reaction Status Date / Time No Known Allergies Allergy Verified 12/05/21 06:51 Review of Systems Review of Systems: Yes all other systems are reviewed and are negative [facility] Past Medical History Medical History Alcoholism Depression Diabetes HTN (hypertension) Social History Social History Alcohol intake: current Patient Tobacco Use Status: Current everyday Tobacco user Advance Directives: No Advance Directives Information Provided: Yes Physical Exam Vital Signs: Vital Signs: Last Vital Signs Temp 97.1 F 12/18/22 04:53 Pulse 89 12/18/22 04:53 Resp 18 12/18/22 04:53 BP 104/60 12/18/22 04:53 Pulse Ox 95 12/18/22 04:53 O2 Del Method 12/18/22 04:53 BMI result Body Mass Index 23.4 Appearance: Alert. Oriented X3. No acute distress. etoh++ Eyes: No pallor or icterus ENT: Pharynx normal. Oral Mucosa moist Neck: Normal inspection. Neck supple. CVS: Normal heart rate and rhythm. Pulses normal. Respiratory: No respiratory distress. Equal air entry bilateral, bilateral prolonged expiration Abdomen: Soft and nontender. Bowel sounds are present, no mass palpable, no CVA tenderness Skin: Skin warm and dry. Normal skin color. Normal skin turgor. Extremities: No lower extremity edema. No calf tenderness Neuro: Oriented X 3. No motor deficit. No sensory deficit.No cerebellar signs , cranial nerves II-XII intact Medications Administered Discontinued Medications Generic Name Dose Route Start Last Admin Trade Name Freq PRN Reason Stop Dose Admin Albuterol Sulfate 2.5 mg/ 0 mg 12/18/22 02:55 12/18/22 03:05 Ipratropium [place] 0.5 mg INHALE 12/18/22 02:56 1 each ONCE ONE Administration Sodium Chloride 1,000 mls @ 999 mls/hr 12/18/22 02:40 12/18/22 04:56 Ns IV 12/18/22 03:40 Infused .Q1H1M ONE Infusion Methylprednisolone Sodium Succinate 125 mg 12/18/22 02:56 12/18/22 03:01 Methylprednisolone Sod Succ 125 Mg/2 Ml Vial IVPUSH 12/18/22 02:57 125 mg ONCE ONE Administration Ondansetron HCl 4 mg 12/18/22 02:40 12/18/22 02:57 Ondansetron Hcl 4 Mg/2 Ml Vial IVPUSH 12/18/22 02:41 4 mg ONCE ONE Administration Medical Decision Making Medical Decision Making [facility] Narrative: Patient with asthma with alcohol use lungs with prolonged expiration chest x-ray negative saturating 95% on room air at this time will discharge patient home advised to stop drinking alcohol patient will go with her family Differential Diagnosis Asthma/pneumonia/pneumothorax/alcohol intoxication/rib fx Lab Data [facility] Lab Attestation statement: I reviewed the patient's lab results. 12/18/22 01:52 12/18/22 01:52 Labs: Lab Results 12/18/22 12/18/22 12/18/22 Range/Units 01:52 01:52 01:52 WBC 4.8 (4.8-10.8) X10*3/uL RBC 3.47 L (4.20-5.50) X10*6/uL Hgb 12.1 (12.0-16.0) g/dl Hct 35.2 L (37.0-47.0) % MCV 101.4 H (80.0-98.0) fL MCH 34.9 H (27.0-33.0) pg MCHC 34.4 (31.0-35.0) g/dl RDW 13.1 (11.0-16.0) % Plt Count 129 L D (160-400) X10*3/uL MPV 9.6 (9.4-12.3) fL Immature Gran % (Auto) 0.2 (0.0-0.4) % Neut % (Auto) 31.1 L (45-73) % Lymph % (Auto) 53.1 H (20-40) % [place] % (Auto) 11.6 H (2-11) % Eos % (Auto) 2.9 (0-4) % Baso % (Auto) 1.1 (0-2) % Lymph # (Auto) 2.5 (1.2-4.9) X10*3/uL [place] # (Auto) 0.6 (0.1-1.2) X10*3/uL Eos # (Auto) 0.1 (0.0-0.4) X10*3/uL Baso # (Auto) 0.1 (0.0-0.2) X10*3/uL Abs Immat Gran (auto) 0.01 (0.00-0.03) X10*3/uL Absolute Neuts (auto) 1.5 L (2.0-8.3) x10*3/uL Absolute Nucleated RBC 0.000 (0.0-0.012) X10*3/uL Nucleated RBC % (auto) 0.0 (0.0-0.2) /100WBC D-Dimer High Sensitivty NG/ML Sodium 144 (135-145) mmol/L Potassium 4.1 D (3.3-5.1) mmol/L Chloride 111 H (96-108) mmol/L Carbon Dioxide 20 L (22-29) mmol/L Anion Gap 17 (12-20) BUN 11 (9-16) mg/dL Creatinine 0.59 (0.5-1.4) mg/dL Estim Creat Clear Calc 67.3 Estimated GFR > 60 Random Glucose 111 (60-115) mg/dL Calcium 8.8 (8.4-10.2) mg/dL Magnesium (1.6-2.6) mg/dL Total Bilirubin 0.5 (0.0-1.0) mg/dL Direct Bilirubin 0.2 (0.0-0.5) mg/dL AST 80 H (5-31) U/L ALT 32 H (0-31) U/L Alkaline Phosphatase 116 (39-117) U/L Troponin I High Sens < 3.5 (<3.5-17.0) ng/L Total Protein 6.6 (6.5-8.0) g/dL Albumin 3.5 (3.5-5.0) g/dL Lipase 30 (8-78) U/L Ethyl Alcohol mg/dL Influenza Type A (PCR) (Negative) Influenza Type B (PCR) (Negative) RSV RNA Qual (PCR) (Negative) SARS-CoV-2 RNA (RT-PCR) (Negative) 12/18/22 12/18/22 12/18/22 Range/Units 01:52 01:52 01:52 WBC (4.8-10.8) X10*3/uL RBC (4.20-5.50) X10*6/uL Hgb (12.0-16.0) g/dl Hct (37.0-47.0) % MCV (80.0-98.0) fL MCH (27.0-33.0) pg MCHC (31.0-35.0) g/dl RDW (11.0-16.0) % Plt Count (160-400) X10*3/uL MPV (9.4-12.3) fL Immature Gran % (Auto) (0.0-0.4) % Neut % (Auto) (45-73) % Lymph % (Auto) (20-40) % [place] % (Auto) (2-11) % Eos % (Auto) (0-4) % Baso % (Auto) (0-2) % Lymph # (Auto) (1.2-4.9) X10*3/uL [place] # (Auto) (0.1-1.2) X10*3/uL Eos # (Auto) (0.0-0.4) X10*3/uL Baso # (Auto) (0.0-0.2) X10*3/uL Abs Immat Gran (auto) (0.00-0.03) X10*3/uL Absolute Neuts (auto) (2.0-8.3) x10*3/uL Absolute Nucleated RBC (0.0-0.012) X10*3/uL Nucleated RBC % (auto) (0.0-0.2) /100WBC D-Dimer High Sensitivty 246 NG/ML Sodium (135-145) mmol/L Potassium (3.3-5.1) mmol/L Chloride (96-108) mmol/L Carbon Dioxide (22-29) mmol/L Anion Gap (12-20) BUN (9-16) mg/dL Creatinine (0.5-1.4) mg/dL Estim Creat Clear Calc Estimated GFR Random Glucose (60-115) mg/dL Calcium (8.4-10.2) mg/dL Magnesium 1.8 (1.6-2.6) mg/dL Total Bilirubin (0.0-1.0) mg/dL Direct Bilirubin (0.0-0.5) mg/dL AST (5-31) U/L ALT (0-31) U/L Alkaline Phosphatase (39-117) U/L Troponin I High Sens (<3.5-17.0) ng/L Total Protein (6.5-8.0) g/dL Albumin (3.5-5.0) g/dL Lipase (8-78) U/L Ethyl Alcohol 329 H* mg/dL Influenza Type A (PCR) NEGATIVE (Negative) Influenza Type B (PCR) NEGATIVE (Negative) RSV RNA Qual (PCR) NEGATIVE (Negative) SARS-CoV-2 RNA (RT-PCR) NEGATIVE (Negative) Discharge Plan Discharge Clinical Impression: Asthma with exacerbation, Alcohol intoxication Patient Disposition: Home, Self-Care Instructions: Asthma (ED), Alcohol Intoxication (ED) Additional Instructions: Stop drinking alcohol Use inhaler and prednisone as prescribed Follow-up with PCP if not better Prescriptions: New prednisone 20 mg tablet 40 mg PO DAILY Qty: 10 0RF albuterol sulfate [ProAir HFA] 90 mcg/actuation HFA aerosol inhaler 2 puff inhalation Q4-6H PRN (Reason: shortness of breath or wheezing) Qty: 8.5 0RF
[2022-12-18 01:32] VITALS: BP 105/71; PULSE 105; RESP 24; O2SAT 96; BMI 23.4
--- NOTE | 2022-12-18 01:38 | ECG_ITS ---
Test Reason : SOB Blood Pressure : / mmHG Vent. Rate : 085 BPM Atrial Rate : 085 BPM P-R Int : 156 ms QRS Dur : 070 ms QT Int : 376 ms P-R-T Axes : 057 042 045 degrees QTc Int : 447 ms Normal sinus rhythm Normal ECG When compared with ECG of 16-OCT-2021 15:52, No significant change was found Referred By: Miguel Weldon Electronically Signed By:Steven Vogel
[2022-12-18 01:56] LABS: MANUAL DIFF FLAG NO
[2022-12-18 01:57] VITALS: TEMP 36.6
[2022-12-18 01:58] LABS: Basophils Absolute Auto 0.1 X10*3/uL (0.0-0.2); Basophils Percent Auto 1.1 % (0-2); Eosinophils Absolute Auto 0.1 X10*3/uL (0.0-0.4); Eosinophils Percent Auto 2.9 % (0-4); Hematocrit 35.2 % (37.0-47.0); Hemoglobin 12.1 g/dl (12.0-16.0); Imm Gran Abs Auto 0.01 X10*3/uL (0.00-0.03); Imm Gran Pct Auto 0.2 % (0.0-0.4); Lymphocytes Absolute Auto 2.5 X10*3/uL (1.2-4.9); Lymphocytes Percent Auto 53.1 % (20-40); Mean Corpuscular HGB Conc 34.4 g/dl (31.0-35.0); Mean Corpuscular Hemoglobin 34.9 pg (27.0-33.0); Mean Corpuscular Volume 101.4 fL (80.0-98.0); Mean Platelet Volume 9.6 fL (9.4-12.3); Monocytes Absolute Auto 0.6 X10*3/uL (0.1-1.2); Monocytes Percent Auto 11.6 % (2-11); Neutrophils Absolute Auto 1.5 x10*3/uL (2.0-8.3); Neutrophils Percent Auto 31.1 % (45-73); Platelet Count 129 X10*3/uL (160-400); Red Blood Count 3.47 X10*6/uL (4.20-5.50); Red Cell Distribution Width 13.1 % (11.0-16.0); White Blood Count 4.8 X10*3/uL (4.8-10.8)
[2022-12-18 02:05] LABS: D Dimer High Sensitivity 246 NG/ML
[2022-12-18 02:19] LABS: Troponin-I High Sensitivity < 3.5 ng/L (<3.5-17.0)
[2022-12-18 02:25] LABS: Alanine Aminotransferase 32 U/L (0-31); Albumin Level 3.5 g/dL (3.5-5.0); Alkaline Phosphatase 116 U/L (39-117); Anion Gap 17 (12-20); Aspartate Amino Transferase 80 U/L (5-31); Bilirubin Direct 0.2 mg/dL (0.0-0.5); Bilirubin Total 0.5 mg/dL (0.0-1.0); Blood Urea Nitrogen 11 mg/dL (9-16); Calcium 8.8 mg/dL (8.4-10.2); Carbon Dioxide 20 mmol/L (22-29); Chloride 111 mmol/L (96-108); Creatinine Clr Calc Pharmacy 67.3; Estimated Glomerular Filt Rate > 60; Ethanol 329 mg/dL; Glucose Random 111 mg/dL (60-115); Lipase 30 U/L (8-78); Magnesium 1.8 mg/dL (1.6-2.6); Potassium 4.1 mmol/L (3.3-5.1); Sodium 144 mmol/L (135-145); Total Protein 6.6 g/dL (6.5-8.0)
[2022-12-18 02:34] LABS: Influenza A PCR NEGATIVE (Negative); Influenza B PCR NEGATIVE (Negative); Resp Syncy Virus RNA Qual PCR NEGATIVE (Negative); SARS COV2 PCR INHOUSE NEGATIVE (Negative)
[2022-12-18] MEDS: ondansetron HCL 4 MG/2 ML VIAL IVPUSH (02:57)
[2022-12-18] MEDS: 0.9 % Sodium Chloride 1,000 ML 999 ML IV (02:59)
[2022-12-18] MEDS: methylPREDNISolone Sod Succ 125 MG/2 ML VIAL IVPUSH (03:01)
[2022-12-18 03:08] VITALS: PULSE 84; RESP 18; O2SAT 94
--- NOTE | 2022-12-18 04:01 | PC.NURSE ---
patient provided with pb & jelly sandwich and cranberry juice. ate half sandwich and all of juice tolerated well no vomiting
[2022-12-18 04:53] VITALS: BP 104/60; PULSE 89; RESP 18; TEMP 36.2; O2SAT 95
--- NOTE | 2022-12-18 06:00 | PC.NURSE ---
patient sleeping comfortably. on pvc monitor. no apparent distress. call obrien within reach, will CTM
--- NOTE | 2022-12-18 06:51 | PC.NURSE ---
patients son called @[phone] to let him know patient is ready for discharge and needs a ride home. son says he will come fern picker patient
== END 2022-12-18 08:37 | disposition home or self-care (01) ==
PROVIDERS: Emergency Provider Internal Medicine; PCP Internal Medicine
DX: J45.901 Unspecified asthma with (acute) exacerbation (principal); F10.220 Alcohol dependence with intoxication, uncomplicated; Y90.8 Blood alcohol level of 240 mg/100 ml or more; Z20.822 Contact with and (suspected) exposure to COVID-19; Z20.828 Contact with and (suspected) exposure to other viral communicable diseases; E11.9 Type 2 diabetes mellitus without complications; I10 Essential (primary) hypertension
CPT/HCPCS: 0241U; 36415; 71045; 80048; 80076; 82077; 83690; 83735; 84484; 85025; 85379; 93005; 94640; 96361; 96374; 96375; 99284; 99285; J2405; J2930

== ENCOUNTER 2022-12-23 16:11 | Emergency (ER) | payer MEDICARE, MEDICAID, SELFPAY ==
--- NOTE | ~2022-12-23 | XR_ITS ---
EXAMINATION: XR CHEST CLINICAL INFORMATION: Shortness of breath COMPARISON: Chest x-ray 12/18/2022 TECHNIQUE: Frontal view of the chest was obtained. FINDINGS: Minimal patchy left basilar opacity likely mild atelectasis. No airspace consolidation. No pleural effusion or pneumothorax. Unchanged cardiomediastinal silhouette. No evidence pulmonary edema. Multiple chronic bilateral rib fracture deformities and right proximal humerus fracture deformity. No acute osseous injury identified. XR/XR chest 1V IMPRESSION: Mild left basilar atelectasis. No acute pulmonary process.
[2022-12-23 16:17] VITALS: BP 121/79; BP 132/71; PULSE 105; PULSE 106; RESP 16; O2SAT 97; O2SAT 99; BMI 22.6
[2022-12-23 16:20] VITALS: BP 124/79; PULSE 102; RESP 17; TEMP 36.6; O2SAT 97
--- NOTE | 2022-12-23 16:25 | ED.GENADULT ---
HPI - General Adult General Chief complaint: Dyspnea Stated complaint: SOB,ETOH Time Seen by Provider: 12/23/22 16:18 Source: patient and EMS Mode of arrival: EMS Limitations: other (suspected alcohol intoxicaiton ) History of Present Illness HPI narrative: 67-year-old female with history of asthma, diabetes, depression, hypertension presenting via EMS for dry cough, shortness of breath, vomiting, diarrhea, fatigue, malaise X 1 week. Patient is intoxicated upon arrival Patient states that she drink half a pt of vodka and 2 beers today her last drink being at 14:00, No hx of alcohol w/drawl seizures.. Patient has abdominal pain but denies blood in stool or vomit. Patient is alert and oriented able to answer my questions. Patient denies chest pain, fever, chills, fatigue, malaise, falls, trauma, headache. Denies fall. Denies SI and HI. GCS 15 Related Data Previous Rx's Medication Instructions Recorded albuterol sulfate 90 mcg/actuation 2 puff inhalation Q4-6H PRN 12/18/22 aerosol inhaler (ProAir HFA) shortness of breath or wheezing #8.5 grams prednisone 20 mg tablet 40 mg PO DAILY #10 tabs 12/18/22 albuterol sulfate 90 mcg/actuation 2 inh inhalation Q4-6H PRN 12/23/22 breath activated powder inhaler shortness of breath or wheezing #1 ea azithromycin 250 mg tablet See Rx Instructions PO .COMPLEX #6 12/23/22 tabs prednisone 20 mg tablet 20 mg PO DAILY 5 days #5 tabs 12/23/22 Allergies Allergy/AdvReac Type Severity Reaction Status Date / Time No Known Allergies Allergy Verified 12/05/21 06:51 Review of Systems Review of Systems: Constitutional : No Weight loss, No Fever, No Chills, + Fatigue, + Malaise ENT/Mouth : No sore throat, No Rhinorrhea Eyes: No Eye Pain, No Swelling, No Redness Cardiovascular : No Chest Pain, + SOB, No Dyspnea on Exertion, No Orthopnea, No Edema, No Palpitations Respiratory : + Cough, No Sputum, No Wheezing Gastrointestinal : + Nausea, +Vomiting, + Diarrhea, No Constipation, + abdominal Pain, No Hematochezia, No Melena Genitourinary : No Dysuria, No Urinary Frequency, No Hematuria, Musculoskeletal : No joint pain, No Myalgias, No Joint Swelling Skin : No Skin Lesions, No rash Neuro : No Weakness, No Numbness, No Dizziness, No Headache Psych : No Anxiety/Panic, No Depression All other systems reviewed and are negative Yes all other systems are reviewed and are negative [facility] Past Medical History Attestation statement: The following information was validated with the patient. Source: old records reviewed and nursing notes reviewed Medical History Alcoholism Depression Diabetes HTN (hypertension) Social History Social History Alcohol intake: current Alcohol intake frequency: 3 or more drinks per day Alcohol type: hard liquor Patient Tobacco Use Status: Current everyday Tobacco user Use of substances other than those prescribed or required for medical reasons: No Advance Directives: No Advance Directives Information Provided: No Physical Exam ED Vital Signs: Vital Signs - 24 hr 12/23/22 16:17 12/23/22 16:20 12/23/22 18:14 Temperature 97.8 F Pulse Rate 105 H 102 H 102 H Respiratory Rate 16 17 18 Blood Pressure 121/79 124/79 Pulse Oximetry 97 97 Oxygen Delivery Method Room Air Room Air 12/23/22 20:00 12/23/22 21:24 Temperature 98.3 F 97.5 F Pulse Rate 69 109 H Respiratory Rate 15 20 Blood Pressure 127/79 161/84 H Pulse Oximetry 96 95 Oxygen Delivery Method Room Air BMI result Body Mass Index 22.6 vss Appearance: Alert.? Oriented X3.? No acute distress.?+ slightly anxious Head: Normocephalic, atraumatic, no step-offs or deformities Eyes: Pupils equal, round and reactive to light.? Neck: Normal inspection.? Neck supple.? CVS: + Rapid heart rate, Normal heart rhythm.? Pulses normal.? Respiratory: No respiratory distress.? Breath sounds normal.? Abdomen: Soft. Non tender. Normoactive bowel sounds throughout Skin: Skin warm and dry.? Normal skin color.? Normal skin turgor.? Extremities: No lower extremity edema.? No calf ttp. 5/5 strength to bilateral upper and lower extremities Neuro: Oriented X 3.? No motor deficit.? No sensory deficit. CN 2-12 intact GCS: 15 Course Reevaluation(s) Reevaluation #1: CBC still pending. Chemistry with elevated potassium 5.2 will give Lokelma. No other acute electrolyte abnormalities requiring intervention. Patient is noted to have elevated transaminases likely secondary to alcohol abuse. Troponin negative, EKG pending. Time: 18:04 Reevaluation #2: Patient continues to express shortness of breath and is now telling me that she is having pain with discomfort underneath both ribs when she breathes. Will obtain D-dimer to rule out PE although again I suspect this is not likely. This is likely an upper respiratory infection. Time: 18:02 Reevaluation #3: CBC showing leukopenia likely secondary to viral illness. Patient also noted to have elevated MCV. UA without infection. Urine toxicology negative. Patient's ethanol level 338 consistent with alcohol intoxication. Patient's COVID influenza are negative. Chest x-ray with mild left basilar atelectasis. No acute pulmonary process seen. No consolidation. Troponin negative, EKG nonischemic unlikely ACS. Patient's D-dimer negative unlikely PE. Patient's upper respiratory symptoms likely secondary to viral illness. Patient reports improvement after albuterol treatment. Repeat BMP pending to look at patient's potassium. Patient does not want detox. Patient resting. At this time patient will be placed into observation to allow more time for patient to become clinically sober. At time observation was started patient common cooperative no acute distress. Vital signs are stable patient's oxygen saturation fluctuating between 95-97% on room air. No signs of labored breathing. Time: 22:31 Medications Administered Discontinued Medications Generic Name Dose Route Start Last Admin Trade Name Jaimeq PRN Reason Stop Dose Admin Albuterol Sulfate 5 mg 12/23/22 18:05 12/23/22 18:14 Albuterol Sulfate 2.5 Mg/0.5 Ml Vial.Neb INHALE 12/23/22 18:06 5 mg ONCE ONE Administration Sodium Chloride 1,000 mls @ 999 mls/hr 12/23/22 18:15 12/23/22 18:26 Ns IV 12/23/22 19:15 999 mls/hr .Q1H1M ZBIGNIEW Administration Sodium Zirconium Cyclosilicate 10 gm 12/23/22 18:04 12/23/22 18:26 Sodium Zirconium Cyclosilicate 10 Gm Powd.Pack PO 02/22/23 18:05 10 gm ONCE ONE Administration Medical Decision Making Medical Decision Making MDM Narrative: 67-year-old female presenting for acute intoxication X 1 day, abdominal pain, vomiting, nausea, shortness of breath, dry cough X 1 week. Rapid regular rythem likley sinus tach on PE. 4PEP Score: 0 GCS 15 Tachycardia likely secondary to intoxication and agitation unlikely from PE. Likely intoxication versus his asthma exacerbation versus viral illness.. Less likely PE, pneumothorax, pneumonia Plan: Labs, imaging Differential Diagnosis Differential Diagnoses: The differential diagnosis associated with the presentation includes Likely intoxication versus his asthma exacerbation versus viral illness.. Less likely PE, pneumothorax, pneumonia Admission/Observation Consideration of admission/observation: Escalation of care including admission/observation considered Admission unlikely Lab Data [facility] Lab Attestation statement: I reviewed the patient's lab results. 12/23/22 17:03 12/23/22 17:03 Labs: Lab Results 12/23/22 12/23/22 12/23/22 Range/Units 17:03 17:03 17:03 WBC 1.8 L (4.8-10.8) X10*3/uL RBC 3.83 L (4.20-5.50) X10*6/uL Hgb 13.4 (12.0-16.0) g/dl Hct 39.6 (37.0-47.0) % MCV 103.4 H (80.0-98.0) fL MCH 35.0 H (27.0-33.0) pg MCHC 33.8 (31.0-35.0) g/dl RDW 13.2 (11.0-16.0) % Plt Count 134 L (160-400) X10*3/uL MPV 10.1 (9.4-12.3) fL Immature Gran % (Auto) 0.5 H (0.0-0.4) % Neut % (Auto) 70.4 (45-73) % Lymph % (Auto) 25.8 (20-40) % [place] % (Auto) 2.2 (2-11) % Eos % (Auto) 0.0 (0-4) % Baso % (Auto) 1.1 (0-2) % Lymph # (Auto) 0.5 L (1.2-4.9) X10*3/uL [place] # (Auto) 0.0 L (0.1-1.2) X10*3/uL Eos # (Auto) 0.0 (0.0-0.4) X10*3/uL Baso # (Auto) 0.0 (0.0-0.2) X10*3/uL Abs Immat Gran (auto) 0.01 (0.00-0.03) X10*3/uL Absolute Neuts (auto) 1.3 L (2.0-8.3) x10*3/uL Absolute Nucleated RBC 0.000 (0.0-0.012) X10*3/uL Nucleated RBC % (auto) 0.0 (0.0-0.2) /100WBC Smear Tech's Comments VERIFIED D-Dimer High Sensitivty NG/ML Sodium 143 (135-145) mmol/L Potassium 5.2 H D (3.3-5.1) mmol/L Chloride 113 H (96-108) mmol/L Carbon Dioxide 20 L (22-29) mmol/L Anion Gap 15 (12-20) BUN 11 (9-16) mg/dL Creatinine 0.66 (0.5-1.4) mg/dL Estim Creat Clear Calc 63.2 Estimated GFR > 60 Random Glucose 207 H (60-115) mg/dL Calcium 8.9 (8.4-10.2) mg/dL Magnesium 2.0 (1.6-2.6) mg/dL Total Bilirubin 0.6 (0.0-1.0) mg/dL AST 119 H (5-31) U/L ALT 40 H (0-31) U/L Alkaline Phosphatase 121 H (39-117) U/L Troponin I High Sens < 3.5 (<3.5-17.0) ng/L B-Natriuretic Peptide (<100) pg/mL Total Protein 7.1 (6.5-8.0) g/dL Albumin 3.8 (3.5-5.0) g/dL Lipase 17 (8-78) U/L Urine Color Urine Appearance Urine pH (5.0-9.0) Ur Specific [place] (1.005-1.025) Urine Protein (Neg-Trace) mg/dL Urine Glucose (UA) (Negative) mg/dL Urine Ketones (Negative) mg/dL Urine Blood (Negative) Urine Nitrite (Negative) Ur Leukocyte Esterase (Negative) Urine Opiates Screen (Not Detect) Urine Fentanyl Screen (Not Detect) Ur Barbiturates Screen (Not Detect) Ur Phencyclidine Scrn (Not Detect) Ur Amphetamines Screen (Not Detect) U Benzodiazepines Scrn (Not Detect) Urine Cocaine Screen (Not Detect) U Marijuana (THC) Screen (Not Detect) Ethyl Alcohol 338 H* mg/dL COVID-19 (YEFRI) (Negative) COVID-19 Clin Com Influenza Type A (FABY) (Negative) Influenza Type B (FABY) (Negative) Influenza A & B Note 12/23/22 12/23/22 12/23/22 Range/Units 17:03 17:06 17:06 WBC (4.8-10.8) X10*3/uL RBC (4.20-5.50) X10*6/uL Hgb (12.0-16.0) g/dl Hct (37.0-47.0) % MCV (80.0-98.0) fL MCH (27.0-33.0) pg MCHC (31.0-35.0) g/dl RDW (11.0-16.0) % Plt Count (160-400) X10*3/uL MPV (9.4-12.3) fL Immature Gran % (Auto) (0.0-0.4) % Neut % (Auto) (45-73) % Lymph % (Auto) (20-40) % [place] % (Auto) (2-11) % Eos % (Auto) (0-4) % Baso % (Auto) (0-2) % Lymph # (Auto) (1.2-4.9) X10*3/uL [place] # (Auto) (0.1-1.2) X10*3/uL Eos # (Auto) (0.0-0.4) X10*3/uL Baso # (Auto) (0.0-0.2) X10*3/uL Abs Immat Gran (auto) (0.00-0.03) X10*3/uL Absolute Neuts (auto) (2.0-8.3) x10*3/uL Absolute Nucleated RBC (0.0-0.012) X10*3/uL Nucleated RBC % (auto) (0.0-0.2) /100WBC Smear Tech's Comments D-Dimer High Sensitivty NG/ML Sodium (135-145) mmol/L Potassium (3.3-5.1) mmol/L Chloride (96-108) mmol/L Carbon Dioxide (22-29) mmol/L Anion Gap (12-20) BUN (9-16) mg/dL Creatinine (0.5-1.4) mg/dL Estim Creat Clear Calc Estimated GFR Random Glucose (60-115) mg/dL Calcium (8.4-10.2) mg/dL Magnesium (1.6-2.6) mg/dL Total Bilirubin (0.0-1.0) mg/dL AST (5-31) U/L ALT (0-31) U/L Alkaline Phosphatase (39-117) U/L Troponin I High Sens (<3.5-17.0) ng/L B-Natriuretic Peptide < 10 (<100) pg/mL Total Protein (6.5-8.0) g/dL Albumin (3.5-5.0) g/dL Lipase (8-78) U/L Urine Color Urine Appearance Urine pH (5.0-9.0) Ur Specific [place] (1.005-1.025) Urine Protein (Neg-Trace) mg/dL Urine Glucose (UA) (Negative) mg/dL Urine Ketones (Negative) mg/dL Urine Blood (Negative) Urine Nitrite (Negative) Ur Leukocyte Esterase (Negative) Urine Opiates Screen (Not Detect) Urine Fentanyl Screen (Not Detect) Ur Barbiturates Screen (Not Detect) Ur Phencyclidine Scrn (Not Detect) Ur Amphetamines Screen (Not Detect) U Benzodiazepines Scrn (Not Detect) Urine Cocaine Screen (Not Detect) U Marijuana (THC) Screen (Not Detect) Ethyl Alcohol mg/dL COVID-19 (YEFRI) Negative (Negative) COVID-19 Clin Com See Note Influenza Type A (FABY) Negative (Negative) Influenza Type B (FABY) Negative (Negative) Influenza A & B Note See Note 12/23/22 12/23/22 12/23/22 Range/Units 17:06 17:06 18:27 WBC (4.8-10.8) X10*3/uL RBC (4.20-5.50) X10*6/uL Hgb (12.0-16.0) g/dl Hct (37.0-47.0) % MCV (80.0-98.0) fL MCH (27.0-33.0) pg MCHC (31.0-35.0) g/dl RDW (11.0-16.0) % Plt Count (160-400) X10*3/uL MPV (9.4-12.3) fL Immature Gran % (Auto) (0.0-0.4) % Neut % (Auto) (45-73) % Lymph % (Auto) (20-40) % [place] % (Auto) (2-11) % Eos % (Auto) (0-4) % Baso % (Auto) (0-2) % Lymph # (Auto) (1.2-4.9) X10*3/uL [place] # (Auto) (0.1-1.2) X10*3/uL Eos # (Auto) (0.0-0.4) X10*3/uL Baso # (Auto) (0.0-0.2) X10*3/uL Abs Immat Gran (auto) (0.00-0.03) X10*3/uL Absolute Neuts (auto) (2.0-8.3) x10*3/uL Absolute Nucleated RBC (0.0-0.012) X10*3/uL Nucleated RBC % (auto) (0.0-0.2) /100WBC Smear Tech's Comments D-Dimer High Sensitivty < 150 NG/ML Sodium (135-145) mmol/L Potassium (3.3-5.1) mmol/L Chloride (96-108) mmol/L Carbon Dioxide (22-29) mmol/L Anion Gap (12-20) BUN (9-16) mg/dL Creatinine (0.5-1.4) mg/dL Estim Creat Clear Calc Estimated GFR Random Glucose (60-115) mg/dL Calcium (8.4-10.2) mg/dL Magnesium (1.6-2.6) mg/dL Total Bilirubin (0.0-1.0) mg/dL AST (5-31) U/L ALT (0-31) U/L Alkaline Phosphatase (39-117) U/L Troponin I High Sens (<3.5-17.0) ng/L B-Natriuretic Peptide (<100) pg/mL Total Protein (6.5-8.0) g/dL Albumin (3.5-5.0) g/dL Lipase (8-78) U/L Urine Color Yellow Urine Appearance Clear Urine pH 6.5 (5.0-9.0) Ur Specific [place] <= 1.005 (1.005-1.025) Urine Protein Negative (Neg-Trace) mg/dL Urine Glucose (UA) Negative (Negative) mg/dL Urine Ketones Negative (Negative) mg/dL Urine Blood Negative (Negative) Urine Nitrite Negative (Negative) Ur Leukocyte Esterase Negative (Negative) Urine Opiates Screen Not Detected (Not Detect) Urine Fentanyl Screen Not Detected (Not Detect) Ur Barbiturates Screen Not Detected (Not Detect) Ur Phencyclidine Scrn Not Detected (Not Detect) Ur Amphetamines Screen Not Detected (Not Detect) U Benzodiazepines Scrn Not Detected (Not Detect) Urine Cocaine Screen Not Detected (Not Detect) U Marijuana (THC) Screen Not Detected (Not Detect) Ethyl Alcohol mg/dL COVID-19 (YEFRI) (Negative) COVID-19 Clin Com Influenza Type A (FABY) (Negative) Influenza Type B (FABY) (Negative) Influenza A & B Note Independent Interpretation I performed an independent interpretation of an: EKG (sinus tach no ischemia ) and Plain X-Ray (negative ) Radiology Impression Discussion of test interpretation with radiology: I have reviewed the radiologist's reading. External Record Review External record reviewed: Inpatient record, Office record, Outpatient record, Prior outpatient labs, Prior outpatient radiology, Primary care record and Outside ED record Core Measures AMI core measures followed: Yes Measure exclusions: not indicated Critical Care Time Critical Care Time Critical Care Time: No Discharge Plan Discharge Clinical Impression: Alcohol intoxication, URI (upper respiratory infection), Acute hyperkalemia Patient Disposition: Still a Patient Instructions: Upper Respiratory Infection (ED), Hyperkalemia (ED), Alcohol Intoxication (ED), Abuse of Alcohol (ED), Alcohol Withdrawal (ED) Additional Instructions: Take your medications as prescribed. If you were prescribed antibiotics today, it is important that you take your medication to their entirety, do not skip any doses, do not finish them early. Follow-up with your primary care provider this week. Return to the emergency department with new or worsening symptoms. Such as fevers, chills, chest pain, shortness of breath, nausea, vomiting, dizziness, headache, vision changes, lethargy, suicidal or homicidal ideation In case of emergency call 911 Your potassium was noted to be slightly elevated while in the emergency department today. Your potassium was 5.2, your given a medication called Diamond to help bring that potassium down to normal range. Please follow-up with your primary care provider within the next 2-3 days for repeat laboratory studies to ensure that this electrolyte disturbance has improved and remains within normal limits. Offer do detox however he refused. I have sent steroids, albuterol inhaler to her pharmacy as well as azithromycin which is an antibiotic for suspected upper respiratory infection. Prescriptions: New azithromycin 250 mg tablet See Rx Instructions .ROUTE .COMPLEX Qty: 6 0RF Rx Instructions: For 250 mg dose pack: take 500 mg today (day 1), then 250 mg for 4 days (days 2-5) prednisone 20 mg tablet 20 mg PO DAILY 5 Days Qty: 5 0RF albuterol sulfate 90 mcg/actuation aerosol powdr breath activated 2 inh inhalation Q4-6H PRN (Reason: shortness of breath or wheezing) Qty: 1 0RF No Action prednisone 20 mg tablet 40 mg PO DAILY Qty: 10 0RF albuterol sulfate [ProAir HFA] 90 mcg/actuation HFA aerosol inhaler 2 puff inhalation Q4-6H PRN (Reason: shortness of breath or wheezing) Qty: 8.5 0RF
[2022-12-23 17:28] LABS: COVID-19 Test Negative (Negative); IDNOW Serial# 16C4AD1C
[2022-12-23 17:31] LABS: Basophils Percent Auto 1.1 % (0-2); Hematocrit 39.6 % (37.0-47.0); Hemoglobin 13.4 g/dl (12.0-16.0); Imm Gran Abs Auto 0.01 X10*3/uL (0.00-0.03); Imm Gran Pct Auto 0.5 % (0.0-0.4); Lymphocytes Absolute Auto 0.5 X10*3/uL (1.2-4.9); Lymphocytes Percent Auto 25.8 % (20-40); MANUAL DIFF FLAG SCAN; Mean Corpuscular HGB Conc 33.8 g/dl (31.0-35.0); Mean Corpuscular Volume 103.4 fL (80.0-98.0); Mean Platelet Volume 10.1 fL (9.4-12.3); Monocytes Percent Auto 2.2 % (2-11); Neutrophils Absolute Auto 1.3 x10*3/uL (2.0-8.3); Neutrophils Percent Auto 70.4 % (45-73); Platelet Count 134 X10*3/uL (160-400); Red Blood Count 3.83 X10*6/uL (4.20-5.50); Red Cell Distribution Width 13.2 % (11.0-16.0); SCAN SMEAR FLAG 1
[2022-12-23 17:32] LABS: IDNOW Serial# BCCEAD1C; Influenza A Negative (Negative); Influenza B2 Negative (Negative)
[2022-12-23 17:34] LABS: Amphetamine Screen Urine Not Detected (Not Detect); Appearance Urine Clear; Barbiturates, Urine Not Detected (Not Detect); Benzodiazepines Screen Urine Not Detected (Not Detect); Cannabinoid Screen Urine Not Detected (Not Detect); Cocaine Screen Urine Not Detected (Not Detect); Color Urine Yellow; Fentanyl, urine Not Detected (Not Detect); Glucose Urine UA Negative (Negative); Leukocyte Esterase Urine Negative (Negative); Nitrite Urine Negative (Negative); Opiate Screen Urine Not Detected (Not Detect); PH 6.5 (5.0-9.0); Phencyclidine Screen Urine Not Detected (Not Detect); Specific Gravity - Urine <= 1.005 (1.005-1.025); Urine Blood Negative (Negative); Urine Ketones Negative (Negative); Urine Protein Negative (Neg-Trace)
[2022-12-23 17:41] LABS: White Blood Count 1.8 X10*3/uL (4.8-10.8)
[2022-12-23 17:45] LABS: Alanine Aminotransferase 40 U/L (0-31); Albumin Level 3.8 g/dL (3.5-5.0); Alkaline Phosphatase 121 U/L (39-117); Anion Gap 15 (12-20); Aspartate Amino Transferase 119 U/L (5-31); Bilirubin Total 0.6 mg/dL (0.0-1.0); Blood Urea Nitrogen 11 mg/dL (9-16); Calcium 8.9 mg/dL (8.4-10.2); Carbon Dioxide 20 mmol/L (22-29); Chloride 113 mmol/L (96-108); Creatinine Clr Calc Pharmacy 63.2; Estimated Glomerular Filt Rate > 60; Ethanol 338 mg/dL; Glucose Random 207 mg/dL (60-115); Lipase 17 U/L (8-78); Potassium 5.2 mmol/L (3.3-5.1); Sodium 143 mmol/L (135-145); Total Protein 7.1 g/dL (6.5-8.0); Troponin-I High Sensitivity < 3.5 ng/L (<3.5-17.0)
--- NOTE | 2022-12-23 18:04 | ECG_ITS ---
Test Reason : sob Blood Pressure : / mmHG Vent. Rate : 101 BPM Atrial Rate : 101 BPM P-R Int : 148 ms QRS Dur : 072 ms QT Int : 360 ms P-R-T Axes : 054 054 062 degrees QTc Int : 466 ms Artifact in tracing Sinus tachycardia Otherwise normal ECG When compared with ECG of 18-DEC-2022 01:54, No significant change was found Referred By: Ellie Nevarez Electronically Signed By:YOLANDA AC
[2022-12-23 18:07] LABS: SLIDE REVIEW VERIFIED
[2022-12-23 18:14] VITALS: PULSE 102; RESP 18; O2SAT 96
[2022-12-23] MEDS: Albuterol Sulfate 2.5 MG/0.5 ML VIAL.NEB 5 MG INHALE (18:14)
[2022-12-23] MEDS: 0.9 % Sodium Chloride 1,000 ML 999 ML IV (18:26)
[2022-12-23] MEDS: Sodium Zirconium Cyclosilicate 10 GM POWD.PACK PO (18:26)
[2022-12-23 18:54] LABS: D Dimer High Sensitivity < 150 NG/ML
[2022-12-23 19:11] LABS: B Type Natriuretic Peptide < 10 pg/mL (<100)
[2022-12-23 20:00] VITALS: BP 127/79; PULSE 69; RESP 15; TEMP 36.8; O2SAT 96
[2022-12-23 21:24] VITALS: BP 161/84; PULSE 109; RESP 20; TEMP 36.4; O2SAT 95
--- NOTE | 2022-12-23 22:54 | MHC.EDTECH ---
pt up to use bedside commode and vitals were taken pt baccto bed
[2022-12-23 23:10] LABS: Anion Gap 13 (12-20); Blood Urea Nitrogen 11 mg/dL (9-16); Calcium 8.2 mg/dL (8.4-10.2); Carbon Dioxide 17 mmol/L (22-29); Chloride 117 mmol/L (96-108); Creatinine Clr Calc Pharmacy 73.2; Estimated Glomerular Filt Rate > 60; Glucose Random 151 mg/dL (60-115); Potassium 3.6 mmol/L (3.3-5.1); Sodium 143 mmol/L (135-145)
[2022-12-24 05:21] VITALS: BP 156/87; PULSE 81; RESP 16; TEMP 37.2; O2SAT 95
--- NOTE | 2022-12-24 05:24 | MHC.EDTECH ---
pt used commode and back to bed, vitals were taken, pt vomited 50cc , she said she was eating pudding and string cheese that was sitting on her table from earlier before my shift, i put all the old food from her table into the trash gave her saltines if she waned to eat something nurse aware
[2022-12-24 07:28] VITALS: BP 150/84; PULSE 89; RESP 17; TEMP 36.7; O2SAT 99
== END 2022-12-24 07:56 | disposition home or self-care (01) ==
PROVIDERS: Physician Assistant; Emergency Provider Student in an Organized Health Care Education/Training Program
DX: F10.129 Alcohol abuse with intoxication, unspecified (principal); Y90.8 Blood alcohol level of 240 mg/100 ml or more; J06.9 Acute upper respiratory infection, unspecified; E87.5 Hyperkalemia; R06.02 Shortness of breath; I10 Essential (primary) hypertension; F17.200 Nicotine dependence, unspecified, uncomplicated; Z20.822 Contact with and (suspected) exposure to COVID-19; Z20.828 Contact with and (suspected) exposure to other viral communicable diseases; Z79.899 Other long term (current) drug therapy; Z71.6 Tobacco abuse counseling
CPT/HCPCS: 36415; 71045; 80048; 80053; 80307; 81003; 82077; 83690; 83735; 83880; 84484; 85025; 85379; 87502; 87635; 93005; 94640; 96360; 96361; 99285

== ENCOUNTER 2023-02-16 09:19 | Emergency (ER) | payer MEDICARE, MEDICAID, SELFPAY ==
--- NOTE | 2023-02-16 09:21 | ED.FALL ---
HPI - Fall General Chief Complaint: General Medical Stated Complaint: R RIB PAIN S/P FALL DOWN STAIRS 5 DAYS AGO PER EMS Time Seen by Provider: 02/16/23 09:21 Source: patient and EMS Mode of arrival: EMS Limitations: no limitations History of Present Illness HPI Narrative: 67 yo female with history of asthma, DM, depression, HTN, and ETOH abuse presents to the ER from home via EMS for evaluation of right sided rib pain s/p fall going up stairs 5 days ago. She reportedly was seen at [facility] yesterday and diagnosed with 2 rib fractures. She was given medicine but does not know the name. She states the pain is severe and she is unable to tolerate it at home. She states it is worse with movement and deep breaths. Pain is located under her right axillary area next to her right breast. She is not on blood thinners. Denies LOC at the time of the fall. No other injuries. complaint: fall Onset (ago): day(s) (5) Fall from: standing Fall witnessed: no Place fall occurred: home Loss of consciousness: none Prolonged down time: no Symptoms prior to fall: none Location of injury: chest Severity: severe Quality: sharp Associated symptoms (after fall): denies Related Data Previous Rx's Medication Instructions Recorded albuterol sulfate 90 mcg/actuation 2 puff inhalation Q4-6H PRN 12/18/22 aerosol inhaler (ProAir HFA) shortness of breath or wheezing #8.5 grams prednisone 20 mg tablet 40 mg PO DAILY #10 tabs 12/18/22 albuterol sulfate 90 mcg/actuation 2 inh inhalation Q4-6H PRN 12/23/22 breath activated powder inhaler shortness of breath or wheezing #1 ea azithromycin 250 mg tablet See Rx Instructions PO .COMPLEX #6 12/23/22 tabs prednisone 20 mg tablet 20 mg PO DAILY 5 days #5 tabs 12/23/22 Allergies Allergy/AdvReac Type Severity Reaction Status Date / Time No Known Allergies Allergy Verified 12/05/21 06:51 Review of Systems Review of Systems: Yes all other systems are reviewed and are negative [facility] Past Medical History Medical History Alcoholism Depression Diabetes HTN (hypertension) Social History Social History Alcohol intake: current Alcohol intake frequency: 3 or more drinks per day Alcohol type: hard liquor Patient Tobacco Use Status: Current everyday Tobacco user Advance Directives: No Physical Exam Vital Signs: Vital Signs: Last Vital Signs Temp 98 F 02/16/23 09:26 Pulse 100 02/16/23 09:26 Resp 18 02/16/23 09:26 BP 121/74 02/16/23 09:26 Pulse Ox 99 02/16/23 09:26 O2 Del Method Room Air 02/16/23 09:26 BMI result Body Mass Index 23.4 Appearance: Alert. Oriented X3. No acute distress. Head: normocephalic, atraumatic. Eyes: Pupils equal, round and reactive to light. ENT: Pharynx normal. No tonsillar swelling or exudate. Neck: Normal inspection. Neck supple. CVS: Normal heart rate and rhythm. Pulses normal. Respiratory: No respiratory distress. Breath sounds normal. Ecchymosis on the chest wall. There is point tenderness of the right lateral ribs, 5-8 Abdomen: Soft and nontender. +BS x4 Skin: Skin warm and dry. Normal skin color. Normal skin turgor. No rashes. Extremities: No lower extremity edema. No joint swelling. Neuro/psych: Oriented X 3. No motor deficit. No sensory deficit. CN II-XII intact. Normal speech and cognition. steady gait Medications Administered Discontinued Medications Generic Name Dose Route Start Last Admin Trade Name Freq PRN Reason Stop Dose Admin Oxycodone HCl 5 mg 02/16/23 09:30 02/16/23 09:40 Oxycodone Hcl Immed Release 5 Mg Tablet PO 02/16/23 09:31 5 mg ONCE ONE Administration Medical Decision Making Medical Decision Making MDM Narrative: 67-year-old female presents to the ER for evaluation of right-sided rib pain after she fell down stairs 5 days ago. She is a poor historian. Records were obtained from [facility]. She was admitted there from 02/10 and was discharged yesterday. She was found to have right-sided rib fractures 4 through 7 with a small hematoma. She was seen by Trauma surgery. She was intoxicated on arrival to the emergency department resulting in her fall down 8-9 steps. She was discharged yesterday with ibuprofen, gabapentin, oxycodone. Arrival to the ER today she has clear lung sounds, SpO2 99% on room air. She has no cough. No signs of trauma on examination. No indication for repeat imaging today. We discussed the results of her CT scan in the importance of incentive spirometry was was provided to the patient. She was given 1 dose of oxycodone in the emergency department with significant improvement in her pain. She would like to go home. At this point she is stable for discharge home. Not comfortable prescribing any additional narcotic medication given her ETOH use. Patient was counseled on this. Stable for DC. Differential Diagnosis Differential Diagnoses: The differential diagnosis associated with the presentation includes multiple rib fractures, traumatic pneumothorax, hemothorax, pneumonia, atelectasis, pleural effusion, contusion Radiology Impression Discussion of test interpretation with radiology: I have reviewed the radiologist's reading. Radiologist Impression: CT scan performed on 02/11 showing 1. right lateral 4th, 5th, 6th, and 7th lateral rib fractures. 2. Trace right pleural effusion atelectasis 3. Hepatic steatosis Independent Historian Clinical information obtained from an independent historian. History obtained from or confirmed by: EMS External Record Review External record reviewed: Inpatient record, Prior outpatient labs, Prior outpatient radiology and Outside ED record Tests considered The following testing was considered but not selected: CXR considered but outside records reviewed Prescription Management I considered prescription management with: Pain Medication chronic ETOH use, no opiates prescribed Chronic Conditions Patient?s care impacted by: Diabetes, Hypertension and Other (etoh abuse) Critical Care Time Critical Care Time Critical Care Time: No Discharge Plan Discharge Clinical Impression: Multiple fractures of ribs Patient Disposition: Home, Self-Care Instructions: Rib Fracture (ED) Additional Instructions: Your [facility] records were reviewed. You broke 4 ribs in your right side. This will take several weeks to heal. Recommend continuing your ibuprofen and Tylenol around the clock. Also continue the prescribed gabapentin. Take the prescribed oxycodone as needed for severe pain. It is important to take deep breaths and exercise your lungs in order to prevent pneumonia. Use the provided incentive spirometer to help cryptologic support specialist lung several times per day. Follow-up with her primary care doctor. If you develop new or worsening symptoms call 911 or come back to the ER for further evaluation. Se revisaron deisi registros de [facility]. Te rompiste 4 costillas en el lado derecho. [place] tardar? varias semanas en sanar. Recomiende continuar con torres ibuprofeno y Tylenol valerie todo el d?a. Tambi?n contin?e con la gabapentina prescrita. [place] la oxicodona recetada seg?n sea necesario para el dolor intenso. Es importante respirar profundamente y ejercitar los pulmones para prevenir la neumon?a. Utilice el espir?metro de incentivo provisto para ayudar al ejercitador a pulmonar varias veces al d?a. Seguimiento con torres m?dico de atenci?n primaria. Si desarrolla s?ntomas nuevos o que empeoran, llame al 911 o regrese a la sushila de emergencias para eda evaluaci?n adicional. Prescriptions: No Action prednisone 20 mg tablet 40 mg PO DAILY Qty: 10 0RF albuterol sulfate [ProAir HFA] 90 mcg/actuation HFA aerosol inhaler 2 puff inhalation Q4-6H PRN (Reason: shortness of breath or wheezing) Qty: 8.5 0RF azithromycin 250 mg tablet See Rx Instructions .ROUTE .COMPLEX Qty: 6 0RF Rx Instructions: For 250 mg dose pack: take 500 mg today (day 1), then 250 mg for 4 days (days 2-5) prednisone 20 mg tablet 20 mg PO DAILY 5 Days Qty: 5 0RF albuterol sulfate 90 mcg/actuation aerosol powdr breath activated 2 inh inhalation Q4-6H PRN (Reason: shortness of breath or wheezing) Qty: 1 0RF Print Language: [place]an
[2023-02-16 09:26] VITALS: BP 121/74; BP 140/76; PULSE 100; RESP 18; TEMP 36.6; O2SAT 95; O2SAT 99; BMI 23.4
[2023-02-16] MEDS: oxyCODONE HCl Immed Release 5 MG TABLET PO (09:40)
== END 2023-02-16 10:41 | disposition home or self-care (01) ==
PROVIDERS: Emergency Provider Emergency Medicine
DX: R07.81 Pleurodynia (principal); S22.41XD Multiple fractures of ribs, right side, subsequent encounter for fracture with routine healing; W10.8XXD Fall (on) (from) other stairs and steps, subsequent encounter; E11.9 Type 2 diabetes mellitus without complications; I10 Essential (primary) hypertension; F10.10 Alcohol abuse, uncomplicated; F17.200 Nicotine dependence, unspecified, uncomplicated; Z79.899 Other long term (current) drug therapy
CPT/HCPCS: 94010; 99283

== ENCOUNTER 2023-04-14 20:42 | Emergency (ER) | payer MEDICARE, MEDICAID, SELFPAY ==
--- NOTE | 2023-04-14 20:54 | PC.NURSE ---
pt intoxicated, incont and brought to the bathroom for a change management coordinator via wheelchair.
[2023-04-14 21:07] VITALS: BP 108/68; PULSE 91; RESP 16; TEMP 36.3; O2SAT 95; BMI 23.1
[2023-04-14 21:17] VITALS: BP 108/68; PULSE 91; RESP 16; TEMP 36.3; O2SAT 95
--- NOTE | 2023-04-14 21:26 | PC.NURSE ---
Pt ambulated to the bathroom with one assist. Pt was unsteady on her feet. Requested a sandwich and some juice.
--- NOTE | 2023-04-14 22:26 | ED.ALCOHOL ---
HPI - Alcohol General Chief Complaint: ETOH/Substance Use Stated Complaint: ETOH Time Seen by Provider: 04/14/23 22:00 Source: patient and EMS Mode of arrival: EMS Limitations: no limitations History of Present Illness HPI narrative: 67-year-old female known history of alcohol abuse came in to the ED after been intoxicated with alcohol, patient is demanding to stay overnight in the emergency department and be discharged in the morning. Patient was aggressive and seen in the emergency department patient is calm and cooperative, complaining of no CP, SOB, abdominal pain, nausea, vomiting, or diarrhea. Related Data Previous Rx's Medication Instructions Recorded albuterol sulfate 90 mcg/actuation 2 puff inhalation Q4-6H PRN 12/18/22 aerosol inhaler (ProAir HFA) shortness of breath or wheezing #8.5 grams prednisone 20 mg tablet 40 mg PO DAILY #10 tabs 12/18/22 albuterol sulfate 90 mcg/actuation 2 inh inhalation Q4-6H PRN 12/23/22 breath activated powder inhaler shortness of breath or wheezing #1 ea azithromycin 250 mg tablet See Rx Instructions PO .COMPLEX #6 12/23/22 tabs prednisone 20 mg tablet 20 mg PO DAILY 5 days #5 tabs 12/23/22 Allergies Allergy/AdvReac Type Severity Reaction Status Date / Time No Known Allergies Allergy Verified 12/05/21 06:51 Review of Systems Review of Systems: All other systems are reviewed and are negative Constitutional: Reports as per HPI and Reports no additional constitutional complaints Eyes: Reports as per HPI and Reports no additional eye complaints Reports system reviewed and no additional complaints, except as documented Cardiovascular: Reports as per HPI and Reports no additional cardiovascular complaints Respiratory: Reports as per HPI and Reports no additional respiratory complaints Gastrointestinal: Reports as per HPI and Reports no additional gastrointestinal complaints Genitourinary: Reports no additional female genitourinary complaints Musculoskeletal: Reports no additional musculoskeletal complaints Skin/Breast: Reports system reviewed and no additional complaints, except as docu Psychiatric: Reports no additional psychiatric complaints Endocrine: Reports no additional endocrine complaints Hematologic/Lymphatic: Reports no additional hematologic/lymphatic complaints Allergic/Immunologic: Reports no additional allergic/immunologic complaints Reports system reviewed and no additional complaints, except as documented and Reports Abnormal speech present [facility] Past Medical History Medical History Alcoholism Depression Diabetes HTN (hypertension) Social History Social History Alcohol intake: current Alcohol intake frequency: 3 or more drinks per day Alcohol type: hard liquor Patient Tobacco Use Status: Current everyday Tobacco user Advance Directives: No Advance Directives Information Provided: No Physical Exam ED Vital Signs: Vital Signs - 24 hr 04/14/23 21:07 04/14/23 21:17 Temperature 97.3 F 97.3 F Pulse Rate 91 91 Respiratory Rate 16 16 Blood Pressure 108/68 108/68 Pulse Oximetry 95 95 Oxygen Delivery Method Room Air Room Air BMI result Body Mass Index 23.1 Vital signs have been reviewed as appeared to be correct. Blood pressure normal. Heart rate normal. Respiration rate normal. Temperature normal. Oxygen saturation normal. Appearance: Alert. Oriented X3. No acute distress. Head: Normal external exam. Normocephalic. Atraumatic. No [place] signs noted. No raccoon eyes noted Eyes: PERRLA. EOMI. Conjunctiva and sclera normal. Eyelids normal. ENT: TM's Normal. Pharynx normal. Uvula midline. Moist mucous membranes. No trismus noted. No drooling noted. No muffled voice noted. Neck: Normal inspection. Neck supple. FROM. No adenopathy. Thyroid Normal. No meningeal signs. No neck mass noted. CVS: Normal heart rate and rhythm. Heart sound normal. No murmurs noted. Pulses normal throughout. Respiratory: No respiratory distress. Painless inspiration. Breath sounds normal. No wheezes/rales/rhonchi noted. Chest nontender. No accessory muscle usage noted or decreased air movement noted. Abdomen: Soft and nontender. Bowel sounds normal in all 4 quadrants. No distention noted. No organomegaly noted. No visible injury noted. Back: No CVA tenderness. Full range of motion noted. Skin: Skin warm and dry. Normal skin color. Normal skin turgor. No rashes/lesions/lacerations noted. Extremities: No lower extremity edema. Extremities exhibit normal range of motion. Extremities nontender. Neuro: Oriented X 3. Cranial nerve exam: II-XII are grossly intact No motor deficit. No sensory deficit. Reflexes normal. Course Course Course Narrative: Alcohol intoxication will discharge when patient is sober. Medical Decision Making Differential Diagnosis Differential Diagnoses: The differential diagnosis associated with the presentation includes (Alcohol intoxication) Admission/Observation Consideration of admission/observation: Escalation of care including admission/observation considered Discharge Plan Discharge Clinical Impression: Alcoholic intoxication Patient Disposition: Home, Self-Care Instructions: Abuse of Alcohol (ED) Prescriptions: No Action prednisone 20 mg tablet 40 mg PO DAILY Qty: 10 0RF albuterol sulfate [ProAir HFA] 90 mcg/actuation HFA aerosol inhaler 2 puff inhalation Q4-6H PRN (Reason: shortness of breath or wheezing) Qty: 8.5 0RF azithromycin 250 mg tablet See Rx Instructions .ROUTE .COMPLEX Qty: 6 0RF Rx Instructions: For 250 mg dose pack: take 500 mg today (day 1), then 250 mg for 4 days (days 2-5) prednisone 20 mg tablet 20 mg PO DAILY 5 Days Qty: 5 0RF albuterol sulfate 90 mcg/actuation aerosol powdr breath activated 2 inh inhalation Q4-6H PRN (Reason: shortness of breath or wheezing) Qty: 1 0RF Referrals: Physician,Unknown J [Primary Care Provider] -
[2023-04-15] VITALS: BP 115/71; PULSE 81; RESP 16; TEMP 36.6; O2SAT 95
[2023-04-15 03:56] VITALS: RESP 12
[2023-04-15 06:40] VITALS: BP 141/77; PULSE 85; RESP 16; O2SAT 100
== END 2023-04-15 06:41 | disposition home or self-care (01) ==
PROVIDERS: Emergency Provider Emergency Medicine
DX: F10.129 Alcohol abuse with intoxication, unspecified (principal); Y90.9 Presence of alcohol in blood, level not specified; Z79.899 Other long term (current) drug therapy
CPT/HCPCS: 99284

== ENCOUNTER 2023-09-19 16:18 | Emergency (ER) | payer MEDICARE, MEDICAID, SELFPAY ==
--- NOTE | ~2023-09-19 | XR_ITS ---
EXAMINATION: XR RIBS, LEFT CLINICAL INFORMATION: Trauma COMPARISON: 12/23/2022 TECHNIQUE: Frontal view of the chest and 3 oblique views of the left ribs were obtained. FINDINGS: Lungs are hyperinflated with chronic appearing changes but otherwise clear. No consolidation, pneumothorax, or pleural effusion. The cardiomediastinal silhouette and pulmonary vasculature are normal. Chronic bony deformity seen with a healed right humeral neck fracture and multiple healed right sided rib fractures with sclerosis. There are chronic bony deformities to the left ribs as well consistent with subtle healed left-sided rib fractures also. These fractures all appear to be chronic with bony deformity without obvious acute displaced superimposed fracture on these extensive chronic changes. XR/XR ribs LT min 3V w CXR1V IMPRESSION: Extensive chronic appearing bony deformities with multiple bilateral healed rib fractures but no acute superimposed acute displaced fracture on these extensive chronic changes. No pneumothorax or pleural effusion.
--- NOTE | ~2023-09-19 | CT_ITS ---
EXAMINATION: CT HEAD WITHOUT CONTRAST CLINICAL INFORMATION: Trauma COMPARISON: Frontal 12/05/2021 TECHNIQUE: Contiguous axial imaging was performed from the skull base to vertex without intravenous administration of contrast. This CT examination was performed using dose optimization techniques as appropriate, variously including the following: *Automated exposure control *Adjustment of mA and/or kV according to patient size (this includes techniques or standardized protocols for targeted exams where dose is matched to indication/reason for exam; i.e. extremities or head) *Use of iterative reconstruction technique DLP: 1174 mGy-cm FINDINGS: There is no evidence of acute intracranial hemorrhage or territorial infarction. No abnormal mass effect or midline shift is seen. Kathleen to white matter differentiation is well preserved. No extra-axial fluid collections are identified. The ventricles are normal in size. Soft tissue edema involving the posterior apex of the cranium bilaterally and right suprapatellar region. There is no abnormal attenuation within the brain parenchyma. Chronic white matter small vessel ischemic changes. Cerebral atrophy with commensurate ventricular changes. The osseous structures and soft tissues are normal. The mastoid air cells and visualized portions of the paranasal sinuses are well aerated. Bilateral cerumen in the external auditory canals, right greater than left. Internal carotid atherosclerotic calcifications. CT/CT cervical spine wo IV con IMPRESSION: 1. No acute intracranial pathology. 2. Soft tissue edema involving the posterior apex of the cranium bilaterally and right suprapatellar region. 3. Chronic white matter small vessel ischemic changes. EXAMINATION: Noncontrast CT scan of the cervical spine. INDICATION: Trauma COMPARISON: CT cervical spine from 12/05/2021 TECHNIQUE: Helical, multidetector axial images were obtained from the occiput to the upper thorax. Coronal and sagittal reformats of the cervical spine were provided for interpretation. DLP: 1174 mGy-cm FINDINGS: Patient motion artifact slightly limits evaluation. Status post remote C1-C2 posterior fusion, grossly intact. No acute fractures or dislocations of the cervical spine are seen. Slight reversal of normal cervical curvature. Moderate to severe multilevel degenerative changes with anterior bridging osteophytes. Anatomic alignment and positioning of the vertebral bodies and posterior elements is noted. The atlantoaxial joint and craniovertebral articulations are normal without evidence of subluxation. There is no prevertebral soft tissue swelling. The thyroid gland and visualized portions of the lung apices and mediastinum are unremarkable. IMPRESSION: 1. Patient motion artifact slightly limits evaluation. 2. Status post remote C1-C2 posterior fusion, grossly intact. 3. No acute visible fracture or dislocation. 4. Slight reversal of normal cervical curvature. 5. Moderate to severe multilevel degenerative.
--- NOTE | ~2023-09-19 | XR_ITS ---
EXAMINATION: XR HIP, LEFT CLINICAL INFORMATION: Trauma COMPARISON: None available. TECHNIQUE: Frontal view the pelvis with coned frontal and frog-leg lateral views of the left hip. FINDINGS: Femoral heads are well-seated within the respected acetabula. Extensive degenerative changes are seen bilaterally left more so than right where there is more prominent marginal osteophytosis. I do not appreciate any cortical disruption to suggest underlying acute fracture. Degenerative changes seen in the visualized spine. Unremarkable bowel gas pattern XR/XR hip LT w PEL1V IMPRESSION: Extensive degenerative changes but no acute fracture or dislocation seen.
[2023-09-19 16:25] VITALS: BP 130/81; PULSE 93; O2SAT 97
[2023-09-19 16:28] VITALS: BP 133/75; PULSE 94; RESP 16; TEMP 36.8; O2SAT 97; BMI 24.1
--- NOTE | 2023-09-19 16:55 | PC.NURSE ---
luggage attendant came to bedside for anil bull rn and susie. susie mcneil state to keep pt in clothes as she has a collar on at this time.
--- NOTE | 2023-09-19 16:57 | PC.NURSE ---
reports last drink today- beer- etoh hx: daily drinks 1-2 beers/day. pt in collar- readjusted with PA. reports hx withdrawal from etoh but unsure of other details- unknown seizure hx. CIWA 0.
--- NOTE | 2023-09-19 17:43 | ECG_ITS ---
Test Reason : fall Blood Pressure : / mmHG Vent. Rate : 083 BPM Atrial Rate : 083 BPM P-R Int : 150 ms QRS Dur : 072 ms QT Int : 374 ms P-R-T Axes : -10 008 005 degrees QTc Int : 439 ms Normal sinus rhythm RSR' or QR pattern in V1 suggests right ventricular conduction delay Otherwise normal ECG When compared with ECG of 23-DEC-2022 18:36, Heart rate has decreased Referred By: Chang Cruz Electronically Signed By:ANABELA LUCAS MD
--- NOTE | 2023-09-19 17:43 | ED.GENADULT ---
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 The history is somewhat ambiguous be The patient reports that she fell 1 week ago. She complains of left hip and flank pain. She denies any more recent falls Patient admits to alcohol consumption and has been here several times in the past for alcohol intoxication She states that she had 2 beers today She denies any neck pain but arrives in a C-collar Patient denies any chest pain, abdominal pain nausea vomiting Related Data Previous Rx's Medication Instructions Recorded albuterol sulfate 90 mcg/actuation 2 puff inhalation Q4-6H PRN 12/18/22 aerosol inhaler (ProAir HFA) shortness of breath or wheezing #8.5 grams prednisone 20 mg tablet 40 mg (2 x 20 mg) PO DAILY #10 tabs 12/18/22 albuterol sulfate 90 mcg/actuation 2 inh inhalation Q4-6H PRN 12/23/22 breath activated powder inhaler shortness of breath or wheezing #1 ea azithromycin 250 mg tablet See Rx Instructions PO .COMPLEX #6 12/23/22 tabs prednisone 20 mg tablet 20 mg PO DAILY 5 days #5 tabs 12/23/22 Allergies Allergy/AdvReac Type Severity Reaction Status Date / Time No Known Allergies Allergy Verified 09/19/23 16:28 Review of Systems Constitutional: Constitutional: Denies chills, Denies fever(s) and Reports headache(s) Eyes: Eyes: Denies blurry vision ENT: Reports headache(s) Cardiovascular: Cardiovascular: Denies chest pain and Denies dyspnea Respiratory: Respiratory: Denies cough and Denies dyspnea Gastrointestinal: Gastrointestinal: Denies abdominal pain, Denies nausea and Denies vomiting Musculoskeletal: Comments: Patient is C-collar Neurologic: Reports headache(s) [facility] Past Medical History Medical History Alcoholism Depression Diabetes HTN (hypertension) Social History Social History Alcohol intake: current Alcohol intake frequency: 3 or more drinks per day Alcohol type: beer and hard liquor Patient Tobacco Use Status: Current everyday Tobacco user Smoked in Last 30 Days: No Use of substances other than those prescribed or required for medical reasons: No Advance Directives: No Advance Directives Information Provided: No Physical Exam ED Vital Signs: Vital Signs - 24 hr 09/19/23 16:28 09/19/23 16:28 09/19/23 18:32 Temperature 98.2 F 98.2 F 98.2 F Pulse Rate 94 94 87 Respiratory Rate 16 16 16 Blood Pressure 133/75 133/75 123/61 Pulse Oximetry 97 97 97 Oxygen Delivery Method Room Air Room Air Room Air 09/19/23 19:49 09/19/23 21:54 Temperature 98.2 F 98.2 F Pulse Rate 86 94 Respiratory Rate 16 16 Blood Pressure 112/65 138/97 H Pulse Oximetry 97 98 Oxygen Delivery Method Room Air Room Air BMI result Body Mass Index 24.1 Const General: comfortable, no acute distress, alert and awake Nutritional Appearance: well nourished Orientation/consciousness: patient oriented x3 HENMT Throat: Yes posterior oropharynx normal Eyes Eyelids: Yes eyelids normal Conjunctivae: conjunctivae normal Sclerae: sclerae normal Corneas: corneas normal Pupils: Equal, round and reactive pupils present EOM: EOMs intact bilaterally Resp Effort & Inspection: normal respiratory effort, able to speak in complete sentences, no audible wheezes and not labored Auscultation: clear to auscultation bilaterally Cardio Rate: regular rate Rhythm: regular rhythm GI Other: No bruising to the abdomen or flank Inspection: No distended Palpation (GI): Soft to palpation, not firm, nontender, no guarding and not rigid General: Yes no CVA tenderness Back/Spine/Pelvis Other: Hard C-collar in place Back: no CVA tenderness Skin General skin exam: elasticity normal Neuro General: patient oriented x3 Cranial nerves: Yes CN's II-XII intact bilaterally, Yes Equal, round and reactive pupils present and Yes Bilaterally intact EOM present Cognition (Neuro): normal cognition Extrem Other: Tenderness to palpation of the left hip without any obvious visual or palpable deformity. No shortening or rotation of the left lower extremity. Course Reevaluation(s) Reevaluation #1: After patient's C-spine was cleared with imaging, I removed her C-collar and evaluated the posterior scalp. She has an old small laceration to the right occipital region with dry quite matted hair. No active bleeding. Patient is adamant that she has not fallen in over a week. The wound was cleaned as best as the patient would tolerate. There is no indication for sutures as the wound has been open for at least 1 week Time: 19:05 Reevaluation #2: Attempted to ambulate patient. She is quite unsteady on her feet. She reports that she uses a wheelchair at home to get around and does not walk. She lives home alone. Patient is not safe to be discharged back home alone at this time. She will be a case management, physical therapy evaluation in the morning Time: 23:13 Medical Decision Making Medical Decision Making [facility] Narrative: 67-year-old female presents for evaluation of a fall that reportedly happened 1 week ago. She arrives in a C-collar admits to alcohol consumption today. Therefore we cannot clear her C-spine with nexus criteria and will obtain imaging. With a CT scan the brain and cervical spine. She also complains of left hip/flank pain. There is no obvious bruising or abdominal distension. Will get x-ray of the left side of the ribs with a PA chest as well as a left hip x-ray. There is no obvious deformity to left hip/lower extremity. The patient reports nursing staff that she was also complaining of urinary frequency, we will check basic labs and a UA to rule out DKA. Differential Diagnosis Differential Diagnoses: The differential diagnosis associated with the presentation includes Mechanical fall Syncope Contusion Cervical fracture Intracranial hemorrhage Calvarial fracture Hip fracture Contusion Hyperglycemia UTI Lab Data [facility] Lab Attestation statement: I reviewed the patient's lab results. No leukocytosis, no anemia. The patient has no left shift. Chemistries are significant for a chloride just above normal at 110. CO2 of 20. Patient's AST is slightly elevated to 40 which is likely related to alcohol abuse. No other electrolyte abnormalities or chemistry abnormalities. 09/19/23 17:54 09/19/23 17:54 Labs: Lab Results 09/19/23 09/19/23 Range/Units 17:54 18:04 WBC 5.5 (4.8-10.8) X10*3/uL RBC 4.13 L (4.20-5.50) X10*6/uL Hgb 14.6 (12.0-16.0) g/dl Hct 42.4 (37.0-47.0) % MCV 102.7 H (80.0-98.0) fL MCH 35.4 H (27.0-33.0) pg MCHC 34.4 (31.0-35.0) g/dl RDW 13.5 (11.0-16.0) % Plt Count 180 D (160-400) X10*3/uL MPV 9.4 (9.4-12.3) fL Immature Gran % (Auto) 0.9 H (0.0-0.4) % Neut % (Auto) 66.2 (45-73) % Lymph % (Auto) 23.2 (20-40) % O'Brien % (Auto) 8.3 (2-11) % Eos % (Auto) 0.9 (0-4) % Baso % (Auto) 0.5 (0-2) % Lymph # (Auto) 1.3 (1.2-4.9) X10*3/uL O'Brien # (Auto) 0.5 (0.1-1.2) X10*3/uL Eos # (Auto) 0.1 (0.0-0.4) X10*3/uL Baso # (Auto) 0.0 (0.0-0.2) X10*3/uL Abs Immat Gran (auto) 0.05 H (0.00-0.03) X10*3/uL Absolute Neuts (auto) 3.6 (2.0-8.3) x10*3/uL Absolute Nucleated RBC 0.000 (0.0-0.012) X10*3/uL Nucleated RBC % (auto) 0.0 (0.0-0.2) /100WBC Sodium 141 (135-145) mmol/L Potassium 4.0 (3.3-5.1) mmol/L Chloride 110 H (96-108) mmol/L Carbon Dioxide 20 L (22-29) mmol/L Anion Gap 15 (12-20) BUN 9 (9-16) mg/dL Creatinine 0.59 (0.5-1.4) mg/dL Estim Creat Clear Calc 73.5 Estimated GFR > 60 Random Glucose 101 (60-115) mg/dL Calcium 8.7 D (8.4-10.2) mg/dL Total Bilirubin 0.3 (0.0-1.0) mg/dL AST 40 H (5-31) U/L ALT 15 (0-31) U/L Alkaline Phosphatase 88 (39-117) U/L Total Protein 7.2 (6.5-8.0) g/dL Albumin 3.8 (3.5-5.0) g/dL Lipase 33 (8-78) U/L Urine Color Yellow Urine Appearance Clear Urine pH 6.0 (5.0-9.0) Ur Specific Gill <= 1.005 (1.005-1.025) Urine Protein Negative (Neg-Trace) mg/dL Urine Glucose (UA) Negative (Negative) mg/dL Urine Ketones Negative (Negative) mg/dL Urine Blood Trace H (Negative) Urine Nitrite Negative (Negative) Ur Leukocyte Esterase Negative (Negative) Urine RBC 0-2 (0-2) /HPF Urine WBC 0-5 (0-5) /HPF Ur Squamous Epith Cells 0-2 (0-2) /HPF Urine Bacteria None Seen (None Seen) Hyaline Casts 0-2 (0-2) /LPF Ethyl Alcohol 285 mg/dL Independent Interpretation I performed an independent interpretation of an: CT Scan Interpretation: No obvious acute intracranial hemorrhage Radiology Impression Discussion of test interpretation with radiology: I have reviewed the radiologist's reading. (No acute visible fracture or dislocation of the C-spine.) Radiologist Impression: No acute intracranial pathology of the brain Discharge Plan Discharge Clinical Impression: Fall, Laceration of occipital scalp, Alcohol abuse Patient Disposition: Still a Patient Instructions: Laceration (ED) Additional Instructions: Your workup in the emergency department today was reassuring. Next this includes a CT scan your brain, cervical spine. The x-ray of your left side ribs show old fractures but no new fractures Your left hip has arthritis but no fractures Your blood work was reassuring Avoid excessive consumption of alcohol You may use ibuprofen or Tylenol for pain Follow-up with your primary doctor Prescriptions: No Action prednisone 20 mg tablet 40 mg PO DAILY Qty: 10 0RF albuterol sulfate [ProAir HFA] 90 mcg/actuation HFA aerosol inhaler 2 puff inhalation Q4-6H PRN (Reason: shortness of breath or wheezing) Qty: 8.5 0RF azithromycin 250 mg tablet See Rx Instructions .ROUTE .COMPLEX Qty: 6 0RF Rx Instructions: For 250 mg dose pack: take 500 mg today (day 1), then 250 mg for 4 days (days 2-5) prednisone 20 mg tablet 20 mg PO DAILY 5 Days Qty: 5 0RF albuterol sulfate 90 mcg/actuation aerosol powdr breath activated 2 inh inhalation Q4-6H PRN (Reason: shortness of breath or wheezing) Qty: 1 0RF
[2023-09-19 17:57] LABS: MANUAL DIFF FLAG NO
[2023-09-19 18:11] LABS: Appearance Urine Clear; Color Urine Yellow; Glucose Urine UA Negative (Negative); Leukocyte Esterase Urine Negative (Negative); Nitrite Urine Negative (Negative); Specific Gravity - Urine <= 1.005 (1.005-1.025); UMIC TRIGGER UACC YES; Urine Blood Trace (Negative); Urine Ketones Negative (Negative); Urine Protein Negative (Neg-Trace)
[2023-09-19 18:12] LABS: Ethanol 285 mg/dL
[2023-09-19 18:15] LABS: Alanine Aminotransferase 15 U/L (0-31); Albumin Level 3.8 g/dL (3.5-5.0); Alkaline Phosphatase 88 U/L (39-117); Anion Gap 15 (12-20); Aspartate Amino Transferase 40 U/L (5-31); Bilirubin Total 0.3 mg/dL (0.0-1.0); Blood Urea Nitrogen 9 mg/dL (9-16); Calcium 8.7 mg/dL (8.4-10.2); Carbon Dioxide 20 mmol/L (22-29); Chloride 110 mmol/L (96-108); Creatinine Clr Calc Pharmacy 73.5; Estimated Glomerular Filt Rate > 60; Glucose Random 101 mg/dL (60-115); Lipase 33 U/L (8-78); Sodium 141 mmol/L (135-145); Total Protein 7.2 g/dL (6.5-8.0)
[2023-09-19 18:15] LABS: Bacteria Urine None Seen (None Seen); Hyaline Casts Urine 0-2 /LPF (0-2); RBC Urine 0-2 /HPF (0-2); Squamous Epithelial Cell Urine 0-2 /HPF (0-2); WBC Urine 0-5 /HPF (0-5)
[2023-09-19 18:16] LABS: Basophils Percent Auto 0.5 % (0-2); Eosinophils Absolute Auto 0.1 X10*3/uL (0.0-0.4); Eosinophils Percent Auto 0.9 % (0-4); Hematocrit 42.4 % (37.0-47.0); Hemoglobin 14.6 g/dl (12.0-16.0); Imm Gran Abs Auto 0.05 X10*3/uL (0.00-0.03); Imm Gran Pct Auto 0.9 % (0.0-0.4); Lymphocytes Absolute Auto 1.3 X10*3/uL (1.2-4.9); Lymphocytes Percent Auto 23.2 % (20-40); Mean Corpuscular HGB Conc 34.4 g/dl (31.0-35.0); Mean Corpuscular Hemoglobin 35.4 pg (27.0-33.0); Mean Corpuscular Volume 102.7 fL (80.0-98.0); Mean Platelet Volume 9.4 fL (9.4-12.3); Monocytes Absolute Auto 0.5 X10*3/uL (0.1-1.2); Monocytes Percent Auto 8.3 % (2-11); Neutrophils Absolute Auto 3.6 x10*3/uL (2.0-8.3); Neutrophils Percent Auto 66.2 % (45-73); Platelet Count 180 X10*3/uL (160-400); Red Blood Count 4.13 X10*6/uL (4.20-5.50); Red Cell Distribution Width 13.5 % (11.0-16.0); White Blood Count 5.5 X10*3/uL (4.8-10.8)
--- NOTE | 2023-09-19 18:27 | PC.NURSE ---
frequently reminded to stay flat on bed. maintaining collar. no respiratory distress. +CMS.
[2023-09-19 18:32] VITALS: BP 123/61; PULSE 87; RESP 16; TEMP 36.8; O2SAT 97
--- NOTE | 2023-09-19 19:20 | PC.NURSE ---
care assumed of patient at this time.
[2023-09-19 19:49] VITALS: BP 112/65; PULSE 86; RESP 16; TEMP 36.8; O2SAT 97
[2023-09-19 21:54] VITALS: BP 138/97; PULSE 94; RESP 16; TEMP 36.8; O2SAT 98
--- NOTE | 2023-09-19 21:54 | MHC.EDTECH ---
Patient was assisted to bathroom and back to bed ,void lg amount of urine ,Pt ate 2 ham sandwich and drank some juice .
--- NOTE | 2023-09-20 02:59 | MHC.EDTECH ---
At 0300 Pt was assisted to bathroom ,void had some water to drink then back to bed .
[2023-09-20 06:00] VITALS: BP 119/72; PULSE 86; RESP 16; TEMP 36.8; O2SAT 98
--- NOTE | 2023-09-20 06:26 | MHC.EDTECH ---
Pt slept most of the night ,Pt just woke up ,vitals taken ,Pt comfortable ,no apparent distress noted .
[2023-09-20 09:00] VITALS: BP 125/76; PULSE 98; RESP 16; O2SAT 95
[2023-09-20 09:11] VITALS: TEMP 36.6
[2023-09-20 11:31] VITALS: BP 157/84; PULSE 93; RESP 13; O2SAT 99
--- NOTE | 2023-09-20 11:32 | MHC.EDTECH ---
pt was 1-assisted to bathroom, pt was given new clothes to wear, bath wipes to clean herself, and was walked to a clean recliner. warm blanket and food was given. rn aware.
--- NOTE | 2023-09-20 11:43 | PC.NURSE ---
this RN resumed care of pt at this time. updated CIWA = 0 at this time. pt verbalizing no pain. pt awaiting transfer to rehab at this time. pt questioning this RN what time she is leaving - this RN unaware at this time/states that she will find out and let pt. know. pt resting comfortably in stretcher in no apparent distress at this time. respirations even and unlabored.
--- NOTE | 2023-09-20 12:22 | MHC.CM.PN ---
Addendum entered by Megan Lisa 09/20/23 16:16: PTS DAUGHTER EMAILED DOCUMENTS HOWEVER IT IS NOT A HCP, IT IS A POA CM COMPLETED A HCP WITH PT WHO DECIDED TO LIST ONLY HER SON, DARIN SHAHID COMPLETED AND SENT TO SNF TRANSPORT SCHEDULED FOR 1800 HOURS VIA [employer] PENDING [facility] APPROVAL IS OBTAINED BY SNF PTS DAUGHTER WAS CALLED AND NOTIFIED SHE REPORTS HER BROTHER WILL BRING PTS CLOTHES TO THE SNF AFTER SHE GETS THERE Original Note: [facility] OFFERING A BED PENDING PTS MDS AND HCP ARE COMPLETED AND SENT CM HAS COMPLETED THE MDS, HOWEVER THE MED REC IS STILL PENDING ONCE MEDS ARE UPDATED, CM WILL SUBMIT MDS TO [facility] FOR APPROVAL . CM SPOKE TO PTS DAUGHTER GAURI FARIAS ([phone] SHE WILL EMAIL A COPY OF PTS HCP SHE ALSO STATES THE PT IS ON MEDICATIONS FOR HER ASTHMA AND DM AND THEY GET THE MEDS FROM [facility] IN [place]
[2023-09-20 13:15] LABS: Glucose, Whole Blood 128 mg/dL (60-115)
--- NOTE | 2023-09-20 13:20 | PC.NURSE ---
med rec completed at this time - CARE team notified/aware. POC = 128mg/dL. pt awaiting transfer to rehab facility at this time. resting comfortably in no apparent distress. respirations remain even and unlabored.
[2023-09-20 14:00] VITALS: BP 148/84; PULSE 102; RESP 18; O2SAT 100
--- NOTE | 2023-09-20 14:37 | PC.NURSE ---
vss and up to date at this time. pt resting in no apparent distress awaiting transfer to rehab facility. pt aware of plan of care at this time. respirations remain even and unlabored.
[2023-09-20 17:41] VITALS: BP 143/76; PULSE 100; O2SAT 100
--- NOTE | 2023-09-20 17:42 | PC.NURSE ---
vss and up to date at this time aside from pt being slightly tachy. updated CIWA = 1. pt verbalizing no pain at this time. pt still awaiting transfer to facility at this time/aware of plan of care. resting comfortably in no apparent distress. respirations remain even and unlabored.
--- NOTE | 2023-09-20 19:19 | PC.NURSE ---
pt being transported to [facility] at this time.
== END 2023-09-20 19:20 | disposition skilled nursing facility (03) ==
PROVIDERS: Physician Assistant; Emergency Provider Student in an Organized Health Care Education/Training Program; PCP Nurse Practitioner Family
DX: S01.01XA Laceration without foreign body of scalp, initial encounter (principal); M25.552 Pain in left hip; R11.2 Nausea with vomiting, unspecified; M54.2 Cervicalgia; R07.81 Pleurodynia; R51.9 Headache, unspecified; R26.81 Unsteadiness on feet; F10.10 Alcohol abuse, uncomplicated; Y90.8 Blood alcohol level of 240 mg/100 ml or more; F17.200 Nicotine dependence, unspecified, uncomplicated; W01.0XXA Fall on same level from slipping, tripping and stumbling without subsequent striking against object, initial encounter; Y93.9 Activity, unspecified; Y92.9 Unspecified place or not applicable; Y99.9 Unspecified external cause status; Z71.6 Tobacco abuse counseling; Z79.899 Other long term (current) drug therapy
CPT/HCPCS: 36415; 70450; 71101; 72125; 73502; 80053; 80307; 81001; 82947; 83690; 85025; 93005; 97162; 99285

== ENCOUNTER 2024-09-11 11:06 | Emergency (ER) | payer MEDICARE, MEDICAID, SELFPAY ==
--- NOTE | ~2024-09-11 | CT_ITS ---
EXAM: CT HEAD WITHOUT CONTRAST CT CERVICAL SPINE INDICATION: Falls, pain. TECHNIQUE: A noncontrast CT scan was performed from the skull base to the vertex. A noncontrast CT scan of the cervical spine was performed from the base of the skull through T1 at 2.5 mm and 0.625 mm collimation. Coronal and sagittal reformats were obtained at the acquisition workstation. This CT examination was performed using dose optimization techniques as appropriate, variously including the following: * Automated exposure control * Adjustment of mA and/or kV according to patient size (this includes techniques or standardized protocols for targeted exams where dose is matched to indication/reason for exam; i.e. extremities or head) * Use of iterative reconstruction technique Dose length product is 639 mGy-cm. COMPARISON: CT 09/19/2023. FINDINGS: Head: There is no evidence of acute intracranial hemorrhage or edematous large vessel territorial infarction. No abnormal mass effect or midline shift is seen. Kathleen to white matter differentiation is well preserved. No abnormal extra-axial fluid collections are identified. Commensurate prominence of the ventricles and sulci is compatible with generalized parenchymal volume loss. There is patchy periventricular and subcortical white matter hypoattenuation, most likely representing microangiopathic disease No acute calvarial fracture.. Paranasal sinuses and mastoid air cells are well-aerated. Cervical Spine: Redemonstrated are postsurgical changes from posterior spinal fusion at C1-C2. Hardware is intact. There are lucencies around the bilateral pedicle screws at C1, and the right pedicle screw of C2. This is similar or slightly more prominent as compared to the prior CT of 09/19/2023. Nonunited fracture of the dens appears similar to previous. Small corticated-appearing ossifications adjacent to the C1-C2. The atlantooccipital articulation and atlantoaxial articulations are maintained. Slight reversal of the cervical lordosis. The sagittal alignment of the vertebral bodies are maintained, similar to previous. No acute fractures identified. Multilevel severe cervical spondylosis, with multilevel severe disc degenerative changes. Multilevel facet degeneration. No prevertebral soft tissue swelling. Biapical pleuroparenchymal scarring. CT/CT cervical spine wo IV con IMPRESSION: 1. No CT evidence of acute intracranial hemorrhage or edematous territorial infarction. 2. Status post remote C1-C2 posterior spinal fusion, grossly intact. Lucencies adjacent to the pedicle screws, appears similar to previous. 3. No acute visible fracture or dislocation of the cervical spine. 4. Severe cervical spondylosis. 5. Additional findings and details as above. Electronically signed by: Sea Brooke MD 09/11/2024 03:55 PM [facility]
--- NOTE | ~2024-09-11 | CT_ITS ---
EXAMINATION: CT CHEST, ABDOMEN AND PELVIS WITHOUT CONTRAST CLINICAL INFORMATION: falls, pain COMPARISON: CT abdomen pelvis 03/20/2022 TECHNIQUE: Multidetector volumetric imaging was performed from the thoracic inlet through the pubic symphysis without IV contrast. Sagittal and coronal reformatted images were obtained on the technologist's workstation. This CT examination was performed using dose optimization techniques as appropriate, variously including the following: *Automated exposure control *Adjustment of mA and/or kV according to patient size (this includes techniques or standardized protocols for targeted exams where dose is matched to indication/reason for exam; i.e. extremities or head) *Use of iterative reconstruction technique DLP: 171& 357 mGy-cm FINDINGS: CHEST: Lung: There is mild emphysema and bronchial thickening. The lungs are clear without concerning focal opacity or nodule. Mediastinum: The heart is mildly enlarged. The central vascular structures are unremarkable. No hilar or mediastinal lymphadenopathy. Pericardium/Pleura: No significant effusion. No pleural mass or thickening. Coronary artery calcium: Minimal Chest Wall/Axilla: Unremarkable ABDOMEN/PELVIS: Peritoneal Space: No significant free air or free fluid identified. Liver, Gallbladder, Biliary Tree: The liver is normal in size and shape but with decreased attenuation consistent with steatosis. No focal hepatic lesion or biliary ductal dilatation is present. The gallbladder is unremarkable with no evidence of radiopaque gallstones, gallbladder wall thickening, or obvious pericholecystic inflammatory changes. Pancreas: Unremarkable Spleen: Unremarkable Adrenal Glands: Unremarkable Kidneys and Ureters: The kidneys are normal in size, shape, and attenuation. No hydronephrosis, hydroureter, or calculi seen. No perinephric stranding. Bladder: Empty but unremarkable Gastrointestinal Tract: A small hiatal hernia is present. The small and large bowel are unremarkable. The appendix is not seen but there is no evidence of appendicitis. Abdominal Wall: No significant hernia is appreciated. A right lateral abdominal incision is present. Lymph Nodes/retroperitoneum: There is a large retroperitoneal cyst present measuring 7.3 x 6.4 x 7.2 cm (33:34). Although this does not but the kidney, this was present at the time of the prior exam, significantly smaller measuring 3.6 x 3.0 x 3.1 cm and did not abut the kidney. This does have an interface with the duodenum. There is no retroperitoneal lymphadenopathy. Vascular: Calcific atherosclerotic changes are present in the aorta and iliofemoral vessels. There is no evidence of an abdominal aortic aneurysm.. The IVC appears unremarkable. PELVIC VISCERA: Unremarkable OSSEUS STRUCTURES: There are old healed fractures involving the right fifth through seventh lateral ribs along with the left lateral fourth and seventh ribs (see saved lopez images). No acute rib fractures are seen . Mild degenerative changes are noted in the spine most marked at L5-S1. There is an age-indeterminate compression fracture superior endplate of L1 new when compared with 2021. No bony destructive lesions are seen. CT/CT abdomen pelvis wo IV con IMPRESSION: 1. No evidence of a traumatic injury in the chest, abdomen or pelvis. 2. Incidental note made of mild emphysema, mild cardiomegaly, hepatic steatosis, small hiatal hernia and a large benign-appearing water density retroperitoneal cyst which has increased in size when compared to the prior exam. 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 3. Age-indeterminate compression fracture superior endplate of L1. 4. Old healed bilateral rib fractures. Fleischner guidelines were followed. Electronically signed by: Surendra Underwood MD 09/11/2024 03:59 PM EST
[2024-09-11 11:44] VITALS: BP 136/77; PULSE 90; RESP 18; TEMP 36.8; O2SAT 97; BMI 22.7
--- NOTE | 2024-09-11 11:50 | ED_ITS ---
HPI - General Adult General Chief complaint: Fall Stated complaint: fall, l ribcage pain Source: patient and family (patient's daughter in law) Mode of arrival: ambulatory Limitations: no limitations History of Present Illness ED Provider: Kathia Gates PA-C HPI narrative: Patient is a 68 year old assigned female at with a history of ETOH use presenting to the emergency department today with left flank pain and multiple falls. Patient states that she has been falling more lately and is now having left sided flank pain. Patient's daughter in law states that the patient is a daily drinker and falling much more. Patient denies any dizziness, lightheadedness, abdominal pain, nausea, vomiting, fever, chills, blurry vision, double vision, loss of vision, chest pain, difficulty breathing, shortness of breath, back pain, night sweats, pain with urination, increased urinary frequency, increased urinary urgency, blood in her urine or stool, syncope or a near syncopal episode, bowel incontinence, bladder incontinence, or any other complaints at this time. Relieving factors: none Exacerbating factors: none Associated symptoms: denies other symptoms Treatments prior to arrival: none Related Data Home Medications ?Medication ?Instructions ?Recorded ?Confirmed docusate sodium 100 mg capsule 100 mg PO BID 09/20/23 09/20/23 folic acid 1 mg tablet 1 mg PO DAILY 09/20/23 09/20/23 melatonin 1 mg tablet 1 mg PO BEDTIME PRN insomnia 09/20/23 09/20/23 thiamine HCl (vitamin B1) 100 mg 100 mg PO DAILY 09/20/23 09/20/23 tablet (Vitamin B-1) Previous Rx's ?Medication ?Instructions ?Recorded albuterol sulfate 90 mcg/actuation 2 puff inhalation Q4-6H PRN 12/18/22 aerosol inhaler (ProAir HFA) shortness of breath or wheezing #8.5 grams Allergies Allergy/AdvReac Type Severity Reaction Status Date / Time No Known Allergies Allergy Verified 09/11/24 11:49 Review of Systems 2 Constitutional: Constitutional: Reports no additional constitutional complaints, Denies chills, Denies fever(s) and Denies night sweats Eyes: Eyes: Reports no additional eye complaints, Denies blurry vision, Denies change in vision, Denies diplopia, Denies eye discharge, Denies loss of vision and Denies eye pain ENT: Denies dizziness Cardiovascular: Cardiovascular: Reports no additional cardiovascular complaints, Denies chest pain, Denies lightheadedness, Denies Loss of Consciousness and Denies dyspnea Respiratory: Respiratory: Reports no additional respiratory complaints and Denies dyspnea Gastrointestinal: Gastrointestinal: Reports no additional gastrointestinal complaints, Denies abdominal pain, Denies melena, Denies hematochezia, Denies change in bowel habits and Denies change in stool character Genitourinary: Genitourinary: Denies hematuria, Denies urinary frequency, Denies dysuria, Reports flank pain, Denies urinary incontinence, Denies urinary hesitancy and Denies urinary urgency Musculoskeletal: Musculoskeletal: Reports no additional musculoskeletal complaints, Denies numbness and Denies tingling Neurologic: Denies dizziness, Denies loss of vision, Denies numbness and Denies tingling Psychiatric: Psychiatric: Reports no additional psychiatric complaints Endocrine: Endocrine: Reports no additional endocrine complaints Hematologic/Lymphatic: Hematologic/Lymphatic: Reports no additional hematologic/lymphatic complaints Allergic/Immunologic: Allergic/Immunologic: Reports no additional allergic/immunologic complaints PMFSH Past Medical History Attestation statement: The following information was validated with the patient. Source: old records reviewed and nursing notes reviewed Medical History Alcoholism HTN (hypertension) Diabetes Depression Social History Social History Alcohol intake: current Alcohol intake frequency: 3 or more drinks per day Alcohol type: beer and hard liquor Patient Tobacco Use Status: Current everyday Tobacco user Advance Directives: No Advance Directives Information Provided: No Do you have a plan to hurt others: No Plan Physical Exam ED Vital Signs: Vital Signs - 24 hr 09/11/24 11:44 Temperature 98.2 F Pulse Rate 90 Respiratory Rate 18 Blood Pressure 136/77 Pulse Oximetry 97 Oxygen Delivery Method Room Air BMI result Body Mass Index 22.7 Const General: cooperative, no acute distress, alert and awake Nutritional Appearance: well nourished Orientation/consciousness: patient oriented x3 Limitations: no limitations HENMT Head: Yes normal to inspection and Yes atraumatic Ears: hearing grossly normal bilaterally and external ears normal General nose exam: Normal external nose present, no nasal discharge noted and no epistaxis Face and sinus: Yes normal facial exam, No abrasion and No laceration Mouth: Normal oral and palatal mucosa present, no drooling and no muffled voice Eyes General: appearance normal, both eyes and all related structures Periorbital: periorbital findings normal Eyelids: Yes eyelids normal Conjunctivae: conjunctivae normal Pupils: Equal, round and reactive pupils present EOM: EOMs intact bilaterally Neck Neck: Yes normal visual inspection, Yes full ROM and Yes no lymphadenopathy Chest Chest palpation & inspection: normal inspection of the chest Resp Effort & Inspection: normal respiratory effort and able to speak in complete sentences GI Inspection: Yes normal to inspection Neuro General: patient oriented x3 and moves all extremities Cranial nerves: Yes Equal, round and reactive pupils present Cognition (Neuro): normal cognition Extrem General: Yes normal to inspection, Yes full ROM and Yes capillary refill normal Psych Appearance: grossly normal Mental Status: mental status grossly normal Affect: normal affect Attitude: cooperative Thought process: Normal thought process present Thought content: Normal thought content present Insight: Good insight present (Psych) Course Course Course Narrative: RME performed by Kathia Gates PA-C. Patient is a 68 year old assigned female at presenting to the emergency department with left flank pain. Patient's family members state that they are concerned that the patient is nauseous and vomiting including blood tinged because she is a daily alcohol drinker. Detailed physical exam and review of systems are deferred to the microwave technician. EKG, labs, imaging, and swabs ordered. Patient placed back in the waiting room pending room availability and results. Medical Decision Making Medical Decision Making [facility] Narrative: Patient is a 68 year old assigned female at with a history of ETOH use presenting to the emergency department today with left flank pain and multiple falls. Patient's limited physical exam performed in triage was unremarkable. Patient's blood work was unremarkable. Patient's EKG was unremarkable. Patient's imaging showed old bilateral rib fractures, an age-indeterminate compression fracture of L1, and a retroperitoneal cyst that has somewhat increased since last imaging. Patient left the department without completing treatment. Patient left the department before myself or any of the other emergency department clinicians could explain to or review with the patient; physical exam findings, test results, need or lack there of for additional testing, need or lack there of for a procedure to be performed, need or lack there of for hospital admission / transfer, need or lack there of for prescription medication, treatment options, or a treatment plan. Differential Diagnosis Differential Diagnoses: The differential diagnosis associated with the presentation includes Fall Alcohol abuse Admission/Observation Consideration of admission/observation: Escalation of care including admission/observation considered Patient would have been admitted to the hospital had she completed her work up and it had any findings where hospital admission was appropriate, her clinical presentation warranted hospital admission, had myself or any other emergency supervisor winding department had the ability to discuss need or lack there of for hospital admission, and the patient hadn't left the department without completing treatment. Lab Data [facility] Lab Attestation statement: I reviewed the patient's lab results. My interpretation of these results are in the MDM Rationale portion of this note. 09/11/24 12:12 09/11/24 12:12 Labs: Lab Results 09/11/24 Range/Units 12:12 WBC 7.3 (4.8-10.8) X10*3/uL RBC 4.29 (4.20-5.50) X10*6/uL Hgb 15.1 (12.0-16.0) g/dl Hct 43.1 (37.0-47.0) % MCV 100.5 H (80.0-98.0) fL MCH 35.2 H (27.0-33.0) pg MCHC 35.0 (31.0-35.0) g/dl RDW 12.2 (11.0-16.0) % Plt Count 155 L (160-400) X10*3/uL MPV 9.5 (9.4-12.3) fL Immature Gran % (Auto) 0.3 (0.0-0.4) % Neut % (Auto) 61.8 (45-73) % Lymph % (Auto) 25.3 (20-40) % Yates % (Auto) 9.6 (2-11) % Eos % (Auto) 2.3 (0-4) % Baso % (Auto) 0.7 (0-2) % Lymph # (Auto) 1.8 (1.2-4.9) X10*3/uL Yates # (Auto) 0.7 (0.1-1.2) X10*3/uL Eos # (Auto) 0.2 (0.0-0.4) X10*3/uL Baso # (Auto) 0.1 (0.0-0.2) X10*3/uL Abs Immat Gran (auto) 0.02 (0.00-0.03) X10*3/uL Absolute Neuts (auto) 4.5 (2.0-8.3) x10*3/uL Absolute Nucleated RBC 0.000 (0.0-0.012) X10*3/uL Nucleated RBC % (auto) 0.0 (0.0-0.2) /100WBC PT 10.8 L (10.9-12.4) SEC INR 0.9 (0.9-1.1) APTT 32.7 (26.0-36.8) SEC Sodium 139 (135-145) mmol/L Potassium 4.1 (3.3-5.1) mmol/L Chloride 109 H (96-108) mmol/L Carbon Dioxide 20 L (22-29) mmol/L Anion Gap 14 (12-20) BUN 8 L (9-16) mg/dL Creatinine 0.61 (0.5-1.4) mg/dL Estim Creat Clear Calc 70.7 Estimated GFR > 60 Random Glucose 117 H (60-115) mg/dL Calcium 9.2 (8.4-10.2) mg/dL Magnesium 1.8 (1.6-2.6) mg/dL Total Bilirubin 0.5 (0.0-1.0) mg/dL AST 34 H (5-31) U/L ALT 21 (0-31) U/L Alkaline Phosphatase 72 (39-117) U/L Troponin I High Sens < 2.7 (<3.5-17.0) ng/L Total Protein 7.0 (6.5-8.0) g/dL Albumin 3.9 (3.5-5.0) g/dL Influenza Type A (PCR) NEGATIVE (Negative) Influenza Type B (PCR) NEGATIVE (Negative) RSV RNA Qual (PCR) NEGATIVE (Negative) SARS-CoV-2 RNA (RT-PCR) NEGATIVE (Negative) Independent Interpretation I performed an independent interpretation of an: EKG and CT Scan Interpretation: My interpretation is in agreement with the radiologist's impression of these imaging studies. EXAM: CT HEAD WITHOUT CONTRAST CT CERVICAL SPINE INDICATION: Falls, pain. TECHNIQUE: A noncontrast CT scan was performed from the skull base to the vertex. A noncontrast CT scan of the cervical spine was performed from the base of the skull through T1 at 2.5 mm and 0.625 mm collimation. Coronal and sagittal reformats were obtained at the acquisition workstation. This CT examination was performed using dose optimization techniques as appropriate, variously including the following: * Automated exposure control * Adjustment of mA and/or kV according to patient size (this includes techniques or standardized protocols for targeted exams where dose is matched to indication/reason for exam; i.e. extremities or head) * Use of iterative reconstruction technique Dose length product is 639 mGy-cm. COMPARISON: CT 09/19/2023. FINDINGS: Head: There is no evidence of acute intracranial hemorrhage or edematous large vessel territorial infarction. No abnormal mass effect or midline shift is seen. Kathleen to white matter differentiation is well preserved. No abnormal extra-axial fluid collections are identified. Commensurate prominence of the ventricles and sulci is compatible with generalized parenchymal volume loss. There is patchy periventricular and subcortical white matter hypoattenuation, most likely representing microangiopathic disease No acute calvarial fracture.. Paranasal sinuses and mastoid air cells are well-aerated. Cervical Spine: Redemonstrated are postsurgical changes from posterior spinal fusion at C1-C2. Hardware is intact. There are lucencies around the bilateral pedicle screws at C1, and the right pedicle screw of C2. This is similar or slightly more prominent as compared to the prior CT of 09/19/2023. Nonunited fracture of the dens appears similar to previous. Small corticated-appearing ossifications adjacent to the C1-C2. The atlantooccipital articulation and atlantoaxial articulations are maintained. Slight reversal of the cervical lordosis. The sagittal alignment of the vertebral bodies are maintained, similar to previous. No acute fractures identified. Multilevel severe cervical spondylosis, with multilevel severe disc degenerative changes. Multilevel facet degeneration. No prevertebral soft tissue swelling. Biapical pleuroparenchymal scarring. CT/CT cervical spine wo IV con IMPRESSION: 1. No CT evidence of acute intracranial hemorrhage or edematous territorial infarction. 2. Status post remote C1-C2 posterior spinal fusion, grossly intact. Lucencies adjacent to the pedicle screws, appears similar to previous. 3. No acute visible fracture or dislocation of the cervical spine. 4. Severe cervical spondylosis. 5. Additional findings and details as above. Electronically signed by: Sea Brooke MD 09/11/2024 03:55 PM [facility] Dictated By: Sea Brooke MD Signed By: Electronically signed by Sea Brooke MD 09/11/24 1555 EXAMINATION: CT CHEST, ABDOMEN AND PELVIS WITHOUT CONTRAST CLINICAL INFORMATION: falls, pain COMPARISON: CT abdomen pelvis 03/20/2022 TECHNIQUE: Multidetector volumetric imaging was performed from the thoracic inlet through the pubic symphysis without IV contrast. Sagittal and coronal reformatted images were obtained on the technologist's workstation. This CT examination was performed using dose optimization techniques as appropriate, variously including the following: *Automated exposure control *Adjustment of mA and/or kV according to patient size (this includes techniques or standardized protocols for targeted exams where dose is matched to indication/reason for exam; i.e. extremities or head) *Use of iterative reconstruction technique DLP: 171& 357 mGy-cm FINDINGS: CHEST: Lung: There is mild emphysema and bronchial thickening. The lungs are clear without concerning focal opacity or nodule. Mediastinum: The heart is mildly enlarged. The central vascular structures are unremarkable. No hilar or mediastinal lymphadenopathy. Pericardium/Pleura: No significant effusion. No pleural mass or thickening. Coronary artery calcium: Minimal Chest Wall/Axilla: Unremarkable ABDOMEN/PELVIS: Peritoneal Space: No significant free air or free fluid identified. Liver, Gallbladder, Biliary Tree: The liver is normal in size and shape but with decreased attenuation consistent with steatosis. No focal hepatic lesion or biliary ductal dilatation is present. The gallbladder is unremarkable with no evidence of radiopaque gallstones, gallbladder wall thickening, or obvious pericholecystic inflammatory changes. Pancreas: Unremarkable Spleen: Unremarkable Adrenal Glands: Unremarkable Kidneys and Ureters: The kidneys are normal in size, shape, and attenuation. No hydronephrosis, hydroureter, or calculi seen. No perinephric stranding. Bladder: Empty but unremarkable Gastrointestinal Tract: A small hiatal hernia is present. The small and large bowel are unremarkable. The appendix is not seen but there is no evidence of appendicitis. Abdominal Wall: No significant hernia is appreciated. A right lateral abdominal incision is present. Lymph Nodes/retroperitoneum: There is a large retroperitoneal cyst present measuring 7.3 x 6.4 x 7.2 cm (33:34). Although this does not but the kidney, this was present at the time of the prior exam, significantly smaller measuring 3.6 x 3.0 x 3.1 cm and did not abut the kidney. This does have an interface with the duodenum. There is no retroperitoneal lymphadenopathy. Vascular: Calcific atherosclerotic changes are present in the aorta and iliofemoral vessels. There is no evidence of an abdominal aortic aneurysm. The IVC appears unremarkable. PELVIC VISCERA: Unremarkable OSSEUS STRUCTURES: There are old healed fractures involving the right fifth through seventh lateral ribs along with the left lateral fourth and seventh ribs (see saved lopez images). No acute rib fractures are seen . Mild degenerative changes are noted in the spine most marked at L5-S1. There is an age- indeterminate compression fracture superior endplate of L1 new when compared with 2021. No bony destructive lesions are seen. CT/CT chest wo IV con IMPRESSION: 1. No evidence of a traumatic injury in the chest, abdomen or pelvis. 2. Incidental note made of mild emphysema, mild cardiomegaly, hepatic steatosis, small hiatal hernia and a large benign-appearing water density retroperitoneal cyst which has increased in size when compared to the prior exam. 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 3. Age-indeterminate compression fracture superior endplate of L1. 4. Old healed bilateral rib fractures. Fleischner guidelines were followed. Electronically signed by: Surendra Underwood MD 09/11/2024 03:59 PM [facility] Dictated By: Surendra Underwood MD Signed By: Electronically signed by Surendra Underwood MD 09/11/24 1559 Vent. Rate: 086 BPM Atrial Rate: 086 BPM P-R Int: 148 ms QRS Dur: 074 ms QT Int: 364 ms P-R-T Axes: 053 024 048 degrees QTc Int: 435 ms Normal sinus rhythm Septal infarct , age undetermined Abnormal ECG When compared with ECG of 19-SEP-2023 18:10, Septal infarct is now Present Referred By: Kathia Gates Electronically Signed By:Steven Vogel Dictated By: Steven Vogel MD Signed By: Electronically signed by Steven Vogel MD 09/11/24 1813 Radiology Impression Discussion of test interpretation with radiology: I have reviewed the radiologist's reading. Discharge Plan Discharge Clinical Impression: Fall, Alcohol use Patient Disposition: Left W/O Completing Treatment Prescriptions: No Action albuterol sulfate [ProAir HFA] 90 mcg/actuation HFA aerosol inhaler 2 puff inhalation Q4-6H PRN (Reason: shortness of breath or wheezing) Qty: 8.5 0RF thiamine HCl (vitamin B1) [Vitamin B-1] 100 mg tablet 100 mg PO DAILY docusate sodium 100 mg capsule 100 mg PO BID folic acid 1 mg tablet 1 mg PO DAILY melatonin 1 mg tablet 1 mg PO BEDTIME PRN (Reason: insomnia) Discharge Date/Time: 09/11/24 19:15
--- NOTE | 2024-09-11 11:51 | ECG_ITS ---
Test Reason : weakness Blood Pressure : / mmHG Vent. Rate : 086 BPM Atrial Rate : 086 BPM P-R Int : 148 ms QRS Dur : 074 ms QT Int : 364 ms P-R-T Axes : 053 024 048 degrees QTc Int : 435 ms Normal sinus rhythm Septal infarct , age undetermined Abnormal ECG When compared with ECG of 19-SEP-2023 18:10, Septal infarct is now Present Referred By: Kathia Gates Electronically Signed By:Steven Vogel
[2024-09-11 12:16] LABS: MANUAL DIFF FLAG NO
[2024-09-11 12:19] LABS: Basophils Absolute Auto 0.1 X10*3/uL (0.0-0.2); Basophils Percent Auto 0.7 % (0-2); Eosinophils Absolute Auto 0.2 X10*3/uL (0.0-0.4); Eosinophils Percent Auto 2.3 % (0-4); Hematocrit 43.1 % (37.0-47.0); Hemoglobin 15.1 g/dl (12.0-16.0); Imm Gran Abs Auto 0.02 X10*3/uL (0.00-0.03); Imm Gran Pct Auto 0.3 % (0.0-0.4); Lymphocytes Absolute Auto 1.8 X10*3/uL (1.2-4.9); Lymphocytes Percent Auto 25.3 % (20-40); Mean Corpuscular Hemoglobin 35.2 pg (27.0-33.0); Mean Corpuscular Volume 100.5 fL (80.0-98.0); Mean Platelet Volume 9.5 fL (9.4-12.3); Monocytes Absolute Auto 0.7 X10*3/uL (0.1-1.2); Monocytes Percent Auto 9.6 % (2-11); Neutrophils Absolute Auto 4.5 x10*3/uL (2.0-8.3); Neutrophils Percent Auto 61.8 % (45-73); Platelet Count 155 X10*3/uL (160-400); Red Blood Count 4.29 X10*6/uL (4.20-5.50); Red Cell Distribution Width 12.2 % (11.0-16.0); White Blood Count 7.3 X10*3/uL (4.8-10.8)
[2024-09-11 12:27] LABS: INTERNATIONAL NORM RATIO 0.9 (0.9-1.1); Prothrombin Time 10.8 SEC (10.9-12.4)
[2024-09-11 12:30] LABS: Partial Thromboplastin Time 32.7 SEC (26.0-36.8)
[2024-09-11 12:31] LABS: Alanine Aminotransferase 21 U/L (0-31); Albumin Level 3.9 g/dL (3.5-5.0); Alkaline Phosphatase 72 U/L (39-117); Anion Gap 14 (12-20); Aspartate Amino Transferase 34 U/L (5-31); Bilirubin Total 0.5 mg/dL (0.0-1.0); Blood Urea Nitrogen 8 mg/dL (9-16); Calcium 9.2 mg/dL (8.4-10.2); Carbon Dioxide 20 mmol/L (22-29); Chloride 109 mmol/L (96-108); Creatinine Clr Calc Pharmacy 70.7; Estimated Glomerular Filt Rate > 60; Glucose Random 117 mg/dL (60-115); Magnesium 1.8 mg/dL (1.6-2.6); Potassium 4.1 mmol/L (3.3-5.1); Sodium 139 mmol/L (135-145)
[2024-09-11 12:38] LABS: Troponin-I High Sensitivity < 2.7 ng/L (<3.5-17.0)
[2024-09-11 12:54] LABS: Influenza A PCR NEGATIVE (Negative); Influenza B PCR NEGATIVE (Negative); Resp Syncy Virus RNA Qual PCR NEGATIVE (Negative); SARS COV2 PCR INHOUSE NEGATIVE (Negative)
== END 2024-09-11 19:15 | disposition left against medical advice (07) ==
LOC: HO.ED 19:09
PROVIDERS: Physician Assistant Medical; Emergency Provider Emergency Medicine
DX: F10.10 Alcohol abuse, uncomplicated (principal); Y90.8 Blood alcohol level of 240 mg/100 ml or more; R07.89 Other chest pain; R10.2 Pelvic and perineal pain; M54.2 Cervicalgia; R51.9 Headache, unspecified; R94.31 Abnormal electrocardiogram [ECG] [EKG]; Z03.818 Encounter for observation for suspected exposure to other biological agents ruled out; Z79.899 Other long term (current) drug therapy; Z91.81 History of falling
CPT/HCPCS: 0241U; 36415; 70450; 71250; 72125; 74176; 80053; 83735; 84484; 85025; 85610; 85730; 93005; 99283; 99284

== ENCOUNTER → 2024-09-11 11:51 | Outpatient (BNV) | payer MEDICARE, MEDICAID, SELFPAY | PROVIDERS: Emergency Provider Emergency Medicine; Visit Provider Internal Medicine Cardiovascular Disease | DX: R94.31 Abnormal electrocardiogram [ECG] [EKG] (principal) | CPT/HCPCS: 93010 ==

== ENCOUNTER 2025-08-21 20:40 | Emergency (ER) | payer MEDICARE, MEDICAID, SELFPAY ==
[2025-08-21] VITALS (7 sets, daily range): BP systolic 93–133; BP diastolic 58–84; PULSE 82–94; RESP 16–20; O2SAT 94–98; BMI 22.3
[2025-08-21 21:23] LABS: MANUAL DIFF FLAG NO
[2025-08-21 21:24] LABS: Hematocrit 35.9 % (37.0-47.0); Hemoglobin 12.4 g/dl (12.0-16.0); Imm Gran Abs Auto 0.02 X10*3/uL (0.00-0.03); Imm Gran Pct Auto 0.2 % (0.0-0.4); Lymphocytes Absolute Auto 3.1 X10*3/uL (1.2-4.9); Mean Corpuscular HGB Conc 34.5 g/dl (31.0-35.0); Mean Corpuscular Hemoglobin 30.9 pg (27.0-33.0); Mean Corpuscular Volume 89.5 fL (80.0-98.0); NRBC Abs Auto 0.040 X10*3/uL (0.0-0.012); NRBC Pct Auto 0.5 /100WBC (0.0-0.2); Platelet Count 224 X10*3/uL (160-400); Red Blood Count 4.01 X10*6/uL (4.20-5.50); White Blood Count 8.1 X10*3/uL (4.8-10.8)
[2025-08-21 21:37] LABS: Alanine Aminotransferase 11 U/L (0-31); Albumin Level 4.2 g/dL (3.5-5.0); Alkaline Phosphatase 66 U/L (39-117); Anion Gap 16 (12-20); Aspartate Amino Transferase 21 U/L (5-31); Blood Urea Nitrogen 5 mg/dL (9-16); Calcium 8.9 mg/dL (8.4-10.2); Carbon Dioxide 19 mmol/L (22-29); Chloride 109 mmol/L (96-108); Creatinine Clr Calc Pharmacy 80.9; Estimated Glomerular Filt Rate > 60; Magnesium 2.0 mg/dL (1.6-2.6); Potassium 3.3 mmol/L (3.3-5.1); Sodium 141 mmol/L (135-145); Total Protein 7.2 g/dL (6.5-8.0)
[2025-08-22 02:00] VITALS: PULSE 77; RESP 15; O2SAT 97
[2025-08-22 03:05] LABS: Appearance Urine Clear; Glucose Urine UA Negative (Negative); PH 5.5 (5.0-9.0); Specific Gravity - Urine <= 1.005 (1.005-1.025)
[2025-08-22 03:17] LABS: Cannabinoid Screen Urine Not Detected (Not Detect)
--- NOTE | 2025-08-22 05:45 | PC.NURSE ---
at this time this RN spoke w/ Pawan, the pt's son and HCP to update him and inquire if he is able to provide a ride back home for the pt, Pawan stated that he will arrive to the ED shortly in order to provide pt w/ sober ride home post D/C
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
[2025-08-22 06:28] VITALS: BP 121/64; PULSE 97; RESP 16; TEMP 36.4; O2SAT 97
--- NOTE | 2025-08-22 09:07 | PC.NURSE ---
personal belongings removed from [facility] and provided to pt prior to d/c.
[2025-08-22 09:24] VITALS: BP 127/87; PULSE 93; RESP 18; TEMP 36.6; O2SAT 98
[2025-08-22 09:26] VITALS: PULSE 93
[2025-08-22 09:35] VITALS: BP 127/87; PULSE 93; RESP 18; TEMP 36.6; O2SAT 98
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
== END 2025-08-22 09:36 | disposition home or self-care (01) ==
PROVIDERS: Physician Assistant Medical; Emergency Provider Emergency Medicine
DX: F10.129 Alcohol abuse with intoxication, unspecified (principal); Y90.8 Blood alcohol level of 240 mg/100 ml or more; Z51.81 Encounter for therapeutic drug level monitoring; Z79.899 Other long term (current) drug therapy
CPT/HCPCS: 36415; 80053; 80307; 81001; 83735; 85025; 96372; 99285; J1630; J2250